=== PATIENT | male | born 1940 | race Caucasian/White ===

== ENCOUNTER 2016-07-30 06:39 | Inpatient (IN) | payer MEDICARE ==
[2016-07-30 07:28] LABS: Hematocrit 50 % (42-52); Hemoglobin 16.4 g/dl (14.0-18.0)
[2016-07-30 07:48] LABS: BUN/Creatinine Ratio 21.4 (8-20); Calcium 9.6 mg/dL (8.6-10.3); EGFR African American 68.4 (>60); EGFR Non-African American 53.2 (>60); Magnesium 2.2 mg/dL (1.9-2.7); Potassium 3.4 mmol/L (3.5-5.0)
[2016-07-30] MEDS ORDERED: Potassium Chloride LIQUID* 20 MEQ PACKET PO ONE (08:00)
[2016-07-30] MEDS ORDERED: Amiodarone 150 MG IVPREMIX* 150 MG/100 ML BAG IV ONE (08:01)
[2016-07-30 08:23] LABS: TSH (Thyroid Stimulating Horm) 1.64 mcIU/mL (0.34-5.60)
[2016-07-30 08:32] LABS: Free T4 1.31 ng/dL (0.61-1.12)
[2016-07-30] MEDS ORDERED: Lidocaine 2% VISCOUS* 15 ML UDC ONE (09:09)
[2016-07-30] MEDS ORDERED: Flumazenil* 0.1 MG/ML 5 ML MDV ONE (09:09)
[2016-07-30] MEDS ORDERED: fentaNYL* 50 MCG/ML 2 ML VIAL (100 MCG VIAL) ONE (09:09)
[2016-07-30] MEDS ORDERED: Midazolam* 1 MG/ML 5 ML VIAL (5 MG) ONE (09:09)
[2016-07-30] MEDS ORDERED: Naloxone* 0.4 MG/ML 1 ML VIAL ONE (09:09)
[2016-07-30] MEDS ORDERED: Amiodarone 360 MG IVPREMIX* 360 MG/200 ML BAG IV ONE (10:28)
[2016-07-30] MEDS ORDERED: Amiodarone DRIP* 1.8 MG/ML 200 ML IV ONE (10:30)
[2016-07-30] MEDS ORDERED: Dextrose 50% Syringe 50 ML* 25 GM/50 ML SYRINGE IV PUSH PRN (11:24)
[2016-07-30] MEDS ORDERED: Acetaminophen TAB* 325 MG PO PRN (11:24)
[2016-07-30] MEDS ORDERED: Spironolactone TAB* 25 MG PO ONE (11:30)
[2016-07-30] MEDS ORDERED: Furosemide IV* 10 MG/ML 10 ML VIAL (100 MG) IV ONE ×2 (11:30→15:55)
[2016-07-30] MEDS ORDERED: Ondansetron INJ* 2 MG/ML VIAL IV SCH (12:00)
--- NOTE | 2016-07-30 12:51 | RAD ---
INDICATION: Atrial fibrillation COMPARISON: None TECHNIQUE: An AP portable view obtained at 0148 hours is submitted. FINDINGS: Bones/Soft Tissues: There are no acute bony findings. There is sternotomy Cardiomediastinal: The cardiac silhouette is enlarged. Lungs: There is mild interstitial edema with a right-sided infiltrate with right basilar infiltrate or atelectasis. Pleura: Moderate right-sided effusion. Other: None IMPRESSION: MILD INTERSTITIAL CONGESTION WITH ENLARGED CARDIAC SILHOUETTE AND RIGHT AIRSPACE DISEASE WITH EFFUSION. SUGGEST FOLLOW-UP.
--- NOTE | 2016-07-30 13:00 | CONSULT ---
Subjective Date of Service: 07/30/16 Interval History: Date of admission and consult 07/30/2016 Primary Care Physician: Og Queen D.O. Poolroom/Poolhall Manager Dr. Cheikh May CC: Dyspnea, Reason for consult: Atrial fibrillation, CHF HPI Mr. Damon Branham was scheduled for an elective MATT/CV today for rapid atrial fibrillation and CHF. He came to [facility] very dyspneic again in rate uncontrolled atrial fibrillation but we were able to perform a MATT showing severely reduced LVEF 20-25%, mod-severe secondary MR, and no LA/MARISSA thrombus. Due to severe tachypnea and concern over further sedation causing respiratory suppression as patient was too awake to cardiovert, it was decided to admit patient for IV diuresis, heart failure optimization and amiodarone load prior to cardioversion attempt. Since office visit 07/24/2016, patient has continued to worsen with worsening dyspnea, abdominal distension and edema. He is severely orthopneic. There was been no chest pain or syncope. PMH: Medical Problems: Hypertension Diabetes Type II Dyslipidemia Atrial Fibrillation Obesity Pneumonia Gastroesophageal Reflux Disease (GERD) Aortic valve replacement Surgical Hx: Aortic Valve Replacement - (07/07/2007) Dr. Kory Carbajal at [facility]. Aortic valve replacement with a #25 Maxi Snow magna tissue valve. Had post- operative atrial fibrillation resolved with amiodarone FH: VT - 2 brothers Heart Disease - brothers. Father: Cerebrovascular Accident (CVA). Mother: Colon Cancer. 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, non-smoker, no excessive alcohol Allergies: Pencillin Medications Active Medications: Acetaminophen (Tylenol Tab*) 650 mg PO Q4H PRN PRN Reason: FEVER/PAIN Amiodarone HCl (Cordarone Tab*) 400 mg PO BID BRIANNA Dextrose (D50w Syringe 50 Ml*) 12.5 gm IV PUSH .FOR FS < 60 - SS PRN PRN Reason: FS < 60 Furosemide (Lasix Iv*) 40 mg IV SLOW PU 0800,1700 BRIANNA Amiodarone HCl (Nexterone 360 Mg/200 Ml Ivpremix*) 360 mg in 200 mls @ 33.333 mls/hr IV ONCE ONE; 1 MG/MIN PRN Reason: Protocol Stop: 07/30/16 16:29 Amiodarone HCl (Nexterone 360 Mg/200 Ml Ivpremix*) 360 mg in 200 mls @ 16.666 mls/hr IV .PER PROTOCOL BRIANNA; 0.5 MG/MIN PRN Reason: Protocol Stop: 07/31/16 10:30 Insulin Human Lispro (Humalog*) 0 units SUBCUT AC [facility] PRN Reason: Protocol Metoprolol Succinate (Toprol Xl Tab*) 50 mg PO BID [facility] Ondansetron HCl (Zofran Inj*) 4 mg IV Q4H [facility] Rivaroxaban (Xarelto (*)) 20 mg PO DAILY [facility] Spironolactone (Aldactone Tab*) 25 mg PO DAILY [facility] Home Medications: Cyanocobalamin TAB* [Vitamin B12 TAB*] 500 mcg PO DAILY 07/29/16 [History Confirmed 07/30/16] Diltiazem CD CAP* [Cardizem CD CAP*] 240 mg PO DAILY 07/29/16 [History Confirmed 07/30/16] Furosemide TAB* [Lasix TAB*] 40 mg PO DAILY 07/29/16 [History Confirmed 07/30/16 ] Lactobacillus [Probiotic] 1 cap PO DAILY 07/29/16 [History Confirmed 07/30/16] Metformin HCl [Metformin HCl ER] 500 mg PO DAILY 07/29/16 [History Confirmed 02/05] Metoprolol Succinate XL TAB* [Toprol XL TAB*] 100 mg PO DAILY 07/29/16 [History Confirmed 07/30/16] Rivaroxaban TAB(*) [Xarelto 20 mg] 20 mg PO DAILY 07/29/16 [History Confirmed ] Review of Systems - Measurements Intake and Output: Intake and Output Last 24 Hours 07/28/16 07/29/16 07/30/16 07/31/16 06:59 06:59 06:59 06:59 Weight 273 lb 5.971 oz - Review of Systems Constitutional Symptoms: Positive: Weight Gain, Weakness, Fatigue Dermatology: Negative: Skin Lesions, Skin Lumps HEENT: Negative: Change in Hearing, Vertigo Eyes: Negative: Change in Vision, Double Vision, Contacts or Glasses Thyroid: Positive: Palpitations, Weight Gain Negative: Cold Intolerance, Heat Intolerance, Tremor, Frequent Defecation, Constipation, Weight Loss Pulmonary: Positive: Cough, Respiratory Distress, Shortness of Breath, Exercise Intolerance Cardiology: Positive: Shortness of Breath, Swelling of Ankles, Edema, Paroxysmal Nocturnal Dyspnea, Orthopnea Negative: Chest Pain, Palpitations, Peripheral Vascular Dis, Faintness, Syncope, Claudication Gastroenterology: Negative: Nausea, Vomiting, Anorexia, Heartburn, Constipation, Melena Genital - Urinary: Negative: Dysuria, Hematuria Musculoskeletal: Negative: Joint Pain, Joint Stiffness, Arthritis Endocrinology: Positive: Obesity, Diabetes Negative: Hypoglycemia, Calluses, Gynecomastia, Pituitary Disease Hematologic/Lymphatic: Positive: Use of Anticoagulant Negative: Anemia, Easy Brusing Neurology: Negative: Headaches, Migraines, Change in Vision, Diplopia, Dizziness, Change in Balancing, Change in Coordination, Change in Memory, Hx of Stroke\TIA , Hx Seizures Psychiatry: Negative: Depressed Mood, Adhedonia, Weight Change, Guilt Feelings, Tearfulness, Unusual Fatigue Allergic/Immunologic: Negative: Hx HIV, Immunocompromise Review of Systems Statement: All other review of systems negative, unless stated above. Objective Vital Signs: Temp Pulse Resp BP Pulse Ox 97.0 F 31 23 113/75 93 07/30/16 11:35 07/30/16 12:30 07/30/16 12:30 07/30/16 12:30 07/30/16 12:30 Appearance: distressed, not toxic appearing Ears/Nose/Mouth/Throat: Clear Oropharnyx, Mucous Membranes Moist Neck: Trachea Midline, - - uncertain jvp Respiratory: - - tachypnea with increased work of breathing, b/l crackles Cardiovascular: - - irregularly irregular, distant, no significant murmur Abdominal: NL Sounds; No Tenderness; No Distention Extremities: No Clubbing, Cyanosis, - - 2+ pitting edema lower extremities Skin: No Nodules or Sclerosis Neurological: Alert and Oriented x 3 Laboratory Results: 07/30/16 07:15 07/30/16 07:15 INR (Anticoag Therapy) 2.16 (0.89-1.11) H 07/30/16 07:15 APTT 39.5 seconds (26.0-36.3) H 07/30/16 07:15 B-Natriuretic Peptide 390 pg/mL (-100) H 07/30/16 07:15 TSH 1.64 mcIU/mL (0.34-5.60) 07/30/16 07:15 07/05/2016 wbc 10.5, hgb 14.3, plts 189 Na 137, k 4.4, cr 1.4, bun 29 bicarb 26 07/03/2016: tchol 125, tri 85, ldl 77, hdl 31 07/02/2016 hgba1c 6.7 BNP 541 inr 1.16/ptt 27.7 Diagnostic Imaging: Cardiac Testing: Echocardiogram - (07/03/2016) Patient in rapid atrial fibrillation at time of study, LVEF at least mild to moderately reduced (non-diagnostic study), LA moderately dilated, normal gradient/velocity across aortic bioprosthesis T E E - (07/07/2007) Post op MATT shows nromal functioning bioprosthetic aortic valve no evidence of stenosis (max velocity 1.5-1.8 m/s), trivial intravalvular AR, mild-mod MAC with mild-mod MR (decreased post-op), moderate LVH, post- operative LVEF appeared mildly depressed EKG - (07/24/2016) Afib rate 115 bpm, LBBB Cardiac catheterization - (07/01/2007) Dr. Gay [facility] via right groin: Separate ostia for LAD and Lcx, LVEF 35-40%, critical , mild non-obstructive CAD, severe pHTN 81/31 in setting of PCWP 29 mmHg MATT 07/30/2016: LVEF 20-25%, mod-severe functional MR, no LA/MARISSA thrombus, normal functioning aortic bioprosthesis EKG 07/30/2016: LBBB, Afib rate 91 bpm (after IV amiodarone started) CXR 07/30/2016: R> pleural effusion, + pulmonary edema Assessment/Plan In summary Damon Branham is a 76-year-old man with a history of bioprosthetic aortic valve replacement, HTN, DM on oral medications, left bundle branch block who presents with severe systolic HF in the setting of rapid atrial fibrillation suspected for months. MATT today without LA/MARISSA thrombus and normal functioning aortic valve. Reliably taking xarelto. - Discontinue diltiazem - Change toprol from 100 mg PO daily to 50 mg PO BID for now during hospitalization - Give IV amiodarone load then start 400 mg PO BID for now, will need taper at discharge - Continue IV diuresis - Start aldactone 25 mg PO daily today - Start lisinopril 2.5 mg PO daily today - Continue xarelto 20 mg PO daily - Trend I/O, weights BMP/Mg, - Given history of DM and prior non-obstructive CAD will start atorvastatin - Leave NPO after 2400, patient will be re-evaluated for ability to perform external electrical cardioversion tomorrow - Once heart failure is optimized, patient can be discharged, would need BMP and f/u appointment next week. After a period of time in sinus rhythm (or at least strict AFib rate control), will repeat TTE to evaluate for LV recovery ( suspect tachycardia is a significant contributor to patient LV dysfunction and hopefully will improve which was discussed with patient and family) Thank you for allowing me to participate in the cardiovascular care of this patient. Please do not hesitate to contact me with questions or concerns.
[2016-07-30] MEDS ORDERED: Ondansetron INJ* 2 MG/ML VIAL IV PRN (14:01)
--- NOTE | 2016-07-30 14:34 | HP ---
HISTORY AND PHYSICAL: * ADDENDUM: Mr. Branham is a 76-year-old male with history of recently diagnosed atrial fibrillation, who was scheduled for MATT and cardioversion today with Dr. May as outpatient. The patient was noted to be in CHF. His MATT noted to have an EF of 25% and no intracardiac thrombus. The patient is going to be admitted to the intensive care unit with a diagnosis of CHF and continuation of treatment of atrial fibrillation with amiodarone drip. For further details of the patient's presentation and plan, please see history and physical dictated by Zeferino Hernandez on 07/30/16, with which I agree. [id number]/[facility] #: [id number] MTDD
[2016-07-30] MEDS: Insulin LISPRO* 1 UNITS UNIT SUBCUT SCH ×2 (14:38→17:40)
[2016-07-30] MEDS: Lisinopril TAB* 5 MG PO SCH (14:39)
--- NOTE | 2016-07-30 15:23 | HP ---
ATTENDING PROVIDER'S ADDENDUM NOW INCLUDED ON THIS REPORT HISTORY AND PHYSICAL: DATE OF ADMISSION: 07/30/16 PRIMARY CARE PROVIDER: Dr. Queen ATTENDING PHYSICIAN WHILE IN THE HOSPITAL: Dr. Ute Hunt * (report dictated by Doe Hernandez NP) CONSULTING [employer] INSURANCE CLAIMS ADJUSTER: Dr. May CHIEF COMPLAINT: 1. Shortness of breath. 2. Weight gain. 3. Leg swelling. HISTORY OF PRESENT ILLNESS: Mr. Branham is a 76-year-old male patient who has been actually about almost 4 weeks ago was over at [facility] found to be in atrial fibrillation with RVR, he was in CHF. He was diuresed, rate controlled and was discharged ultimately and was sent to Dr. May's office for followup. The patient has a history of atrial fibrillation, he has a history of aortic valve replacement, CHF, coronary artery disease nonobstructive , hypertension, hyperlipidemia, GERD, rheumatic fever, and history of left bundle branch block. He states to me that he has been dealing with his shortness of breath for 3 weeks, although the family thinks like it has been much longer than this. They say that over the weekend and last Wednesday, he has had progressive worsening shortness of breath. He can no longer lie flat. He thinks he has gained about 20 pounds since the [facility] admission. He said he has had more swelling in his lower extremities. He was in touch with Dr. May who felt that he wanted to get him in for a repeat echo and he underwent a MATT today and they were possibly going to try cardioversion; however, the patient's EF was noted to be on the low side at 25 to 30% down from his previously documented ejection fractions. In addition to this, there was concern that he appeared to be in CHF, so cardioversion was aborted and asked to admit the patient to help diurese him. The patient denies having a cough. He says he is really short of breath when he lies flat. He says he has gained weight. He denies using any salt. He says he does not feel palpitation or has any chest discomfort presumably though he may have been in this atrial fibrillation for months and he certainly may now have cardiomyopathy from that. He states that there has been no fevers, no vomiting, no abdominal discomfort, but again because of the concern for CHF he would require IV diuresis. The hospitalist service was asked to evaluate for admission. PAST MEDICAL HISTORY: Significant for: 1. Left bundle branch block. 2. Afib. 3. CHF. 4. Cardiomyopathy. 5. Rheumatic fever. 6. Diabetes. 7. CAD. 8. Hypertension. 9. Hyperlipidemia. 10. GERD. PAST SURGICAL HISTORY: He has had aortic valve replacement which is porcine. HOME MEDICATIONS: According to the list that he provided include: 1. Metoprolol XL 100 mg daily. 2. Cardizem CD 240 mg daily. 3. B12 500 mcg daily. 4. Xarelto 20 mg daily. 5. Lasix 40 mg daily. 6. Metformin 500 mg p.o. daily. 7. Lactobacillus one capsule p.o. daily. ALLERGIES TO MEDICATIONS: Include no known drug allergies. FAMILY HISTORY: His father had CVA. Mother had history of colon cancer. SOCIAL HISTORY: He does not smoke. He does not drink. He lives with his . Surrogate decision maker is his and children. REVIEW OF SYSTEMS: There is no documented fever. He does admit to significant weight change. Denies having any double vision. No ear discharge. Denies having any rhinorrhea. No sore throat, no thyroid enlargement. Denied having any chest pain. There is orthopnea. There is dyspnea on exertion. There is nocturnal dyspnea. There was no abdominal pain. No nausea, no vomiting, no dysuria, no frequency, no seizure, no loss of consciousness, no pruritus and no skin ulcerations. Review of 14 systems completed, all others negative. PHYSICAL EXAMINATION GENERAL: At this time, Mr. Branham is a 76-year-old male patient, he is sitting in the ICU stretcher. He does not appear to be in any acute distress. VITAL SIGNS: Reveals blood pressure 112/74, pulse 92, respirations 29, O2 sat 100%, temperature 97. HEENT: Head is atraumatic and normocephalic. Eyes: EOMs are intact. Sclerae anicteric and not pale. Throat: Oral mucosa appears to be moist. No oropharyngeal erythema. NECK: Supple. He does have JVD. LUNGS: He did have some crackles in the lower bases. Equal diaphragmatic expansion. HEART: Heart sounds S1 and S2, irregularly irregular rate. No murmurs, rubs, or gallops. ABDOMEN: Soft, flat, nontender. Bowel sounds present. EXTREMITIES: He had +2 pitting edema bilaterally from the ankle up to the mid tibia area. He had 5/5 strength. NEUROLOGIC: He is awake, alert, oriented x3. Tongue is midline. Car Repairman were equal. No gross focal deficits. SKIN: Intact. LABORATORY DATA: The labs that I have today so far revealed hemoglobin of 16.4 , hematocrit of 50. INR 2.16. PTT is 39.5. His sodium is 135, potassium 3.4, chloride 100, bicarbonate 29, BUN 28, creatinine 1.21, glucose 156, calcium 9.6 , mag 2.2. BNP 390. TSH 164. Free T4 of 1.31. I do not have an EKG in front of me, but I do have report of an EKG that showed Afib, left bundle branch block, I am getting one now. Chest x-ray is pending. Verbal report of the MATT with EF of 25 to 30%. I did review Dr. May's note from outpatient setting. Old medical records reviewed. ASSESSMENT/PLAN: Mr. Branham is a 76-year-old male patient coming into the [facility] today for an outpatient MATT guided cardioversion, which was aborted due to the fact that the patient has significant amount of lower ejection fraction and now it was concerned for congestive heart failure. We are asked to evaluate for admission. He will be admitted under inpatient status for: 1. Congestive heart failure and new cardiomyopathy, again I suspect this cardiomyopathy is probably from tachycardia. The plan at this point is to control his rhythm. Dr. May has already evaluated the patient. He started him on an amiodarone drip, I will defer that to him, we will diurese him again, Dr. May has already ordered a Lasix IV now. I will replace his potassium as it was low with 40 mEq p.o. We will diurese him, check his weights daily, and we will continue to follow. Going forward, I did order Lasix IV b.i.d. and we will repeat his EKG, follow his electrolytes, and continue to follow. 2. Atrial fibrillation, again he is on amiodarone, his rate when I saw him his rate around 90. We will continue his metoprolol and the amiodarone. We are stopping the diltiazem at this point and we are not going to continue it. We will go ahead and put him on again the Xarelto and continue with rate control. 3. Diabetes, on lispro sliding scale. 4. History of coronary artery disease. He is on a beta-tami, we could consider adding an aspirin, but at this point he is on Xarelto. I will defer to his primary care provider. 5. Hypertension. Continues meds as prescribed. 6. Hyperlipidemia. Follow with his primary. 7. Gastroesophageal reflux disease. Continue with his current medical regimen. 8. Deep vein thrombosis prophylaxis. He is on Xarelto. 9. Code status. Full code. 10. Fluids, electrolytes, and nutrition. He can have a heart healthy diet. TIME SPENT: Time spent on the admission was 60 minutes, greater than half the time was spent [id number] with the patient obtaining my history and physical; the other half time was spent going over the plan of care with the patient and implementing plan of care. I did discuss the plan of care with my attending Dr. Hunt; she is in agreement. DOE HERNANDEZ NP ADDENDUM: Mr. Branham is a 76-year-old male with history of recently diagnosed atrial fibrillation, who was scheduled for MATT and cardioversion today with Dr. May as outpatient. The patient was noted to be in CHF. His MATT noted to have an EF of 25% and no intracardiac thrombus. The patient is going to be admitted to the intensive care unit with a diagnosis of CHF and continuation of treatment of atrial fibrillation with amiodarone drip. For further details of the patient 's presentation and plan, please see history and physical dictated by Zeferino Hernandez on 07/30/16, with which I agree. UTE HUNT MD CC: Dr. Queen, Dr. May * [id number]/[facility] #: [id number] #: [id number] [facility] SYSTEMBhanu
[2016-07-30] MEDS: Amiodarone 360 MG IVPREMIX* 360 MG/200 ML BAG IV SCH (16:01)
--- NOTE | 2016-07-30 17:06 | TEE ---
Patient: SANDY HARTMAN [facility] Rec#: [id number] : 1940 Date: 07/30/2016 Age: 76y Height: 177.8 cm / 70.0 in Weight: 121.6 kg / 268.0 lbs Sex: M BSA: 2.36 Admit Date#: 07/30/2016 Type: Outpatient Referring: Cheikh May DO Performing: Cheikh May DO Reading: Cheikh May DO Signal Fitter: Carolyn Hartman RN RDCS Nurse: Shade Oh, ADILSON Nurse: Maria Esther Guajardo,ADILSON CC: Og Queen DO Transesophageal Echocardiogram Indication: Atrial fibrillation, CHF BP: 109/82 HR: 108 Rhythm: A-Fib Findings History: AVR with #25 Maxi Snow tissue valve in 2007, CAD, LBBB, HTN, DM, HLD, obesity, GERD Technical Comments: The study quality is good. Left Ventricle: The left ventricular chamber size is normal. The estimated ejection fraction is 20-25%. Post surgical hypokinesis of the interventricular septum is observed consistent with valve replacement. There is a left ventricular septal wall motion abnormality observed, possibly due to the presence of a left bundle branch block. Left Atrium: The left atrium is moderately dilated. Spontaneous echo contrast is present in the left atrium cavity and appendage. No thrombus is visualized within the left atrium. There is no thrombus visualized in the left atrial appendage. Right Ventricle: The right ventricle is mildly dilated. The right ventricular global systolic function is moderately reduced. Right Atrium: The right atrium is moderate to severely dilated. A patent foramen ovale is not demonstrated by color Doppler. Aortic Valve: There is a trace of aortic regurgitation. A porcine bio-prosthetic aortic valve is present. The bio-prosthetic aortic valve appears to be functioning normally. Mitral Valve: Mild mitral annular calcification present. The mitral valve leaflets are mildly thickened. There is moderate mitral regurgitation. Tricuspid Valve: The tricuspid valve leaflets are mildly thickened. There is mild tricuspid regurgitation. Unable to estimate the right ventricular systolic pressure. Pulmonic Valve: The pulmonic valve structure is not well visualized. Pericardium: There is no significant pericardial effusion. A pericardial fat pad is visualized. Aorta: There is no dilatation of the ascending aorta. There is no dilation of the aortic root. There is moderate atherosclerotic plaque seen in the aorta. Pulmonary Artery: The main pulmonary artery is not well visualized. Venous: The bicaval view was obtained and appears normal. The pulmonary veins appear normal. The LUPV was well visualized and interrogated with Doppler. MTAT Procedures: All standard views were attempted within the limitations of patient tolerance and safety. History and physical as well as labs were reviewed. The patient was in a fasting state. Risks and benefits of the procedure, including alternatives, were discussed and written informed consent was obtained. The patient and/or their health care customer development representative expressed understanding of the procedure, risks and benefits. Baseline and continuous monitoring of blood pressure, heart rate, pulse oximetry and heart rhythm was performed throughout the procedure. The appropriate time-out procedure was performed as per [facility] protocol. The patient was placed in the left lateral decubitus position. The patient's posterior pharynx was anesthetized with 20ml of 2% viscous lidocaine. The patient received IV Midazolam with a total dose of 3 mg. The patient received IV Fentanyl with a total dose of 75 mcg. An oral bite block was inserted for protection of oral dentition. The multiplane transesophageal echocardiogram probe was inserted through the posterior oropharynx and advanced into the esophagus without difficulty. Multiple 2D images were obtained of the heart and its related structures. Color flow Doppler was used for evaluation. Spectral Doppler was also used. The atrial septum was interrogated with color flow Doppler. At the conclusion of the procedure the probe was removed with continuous suction without complications. The patient tolerated the procedure with no apparent complications. Conclusions The left ventricular chamber size is normal. The estimated LV ejection fraction is 20-25%. The left atrium is at least moderately dilated. There is at least moderate secondary/functional mitral regurgitation. Unable to estimate the right ventricular systolic pressure. The right ventricle is mildly dilated. The right ventricular global systolic function is moderately reduced. The right atrium is moderate to severely dilated. There is moderate atherosclerotic plaque seen in the aortic arch and descending aorta. No recent MATT's available for comparison at time of interpretation. Measurements Name Value Normal Range Aortic Annulus 2.4 cm (1.4 - 2.6) Ao root diameter (2D) 2.8 cm (2.1 - 3.5) Ascending Ao 2.8 cm (2.1 - 3.4) Name Value Normal Range MV E-wave Vmax 0.78 m/sec - MV deceleration time 147 msec - Name Value Normal Range AV Vmax 1 m/sec - Name Value Normal Range MR Vmax 3.7 m/sec - MR VTI 102 cm - MR volume (PISA) 15.3 ml - MR ERO 0.15 cm2 - MR PISA radius 0.5 cm -
[2016-07-30] MEDS: Atorvastatin* 20 MG TAB PO SCH (17:40)
[2016-07-31] MEDS: Amiodarone 360 MG IVPREMIX* 360 MG/200 ML BAG IV SCH (05:17)
[2016-07-31 07:30] LABS: Hematocrit 48 % (42-52); Hemoglobin 15.8 g/dl (14.0-18.0); Mean Corpuscular HGB Conc 33 g/dl (31-36); Mean Corpuscular Hemoglobin 31 pg (27-31); Mean Corpuscular Volume 93 fL (80-94); Mean Platelet Volume 9 um3 (7.4-10.4); Red Blood Count 5.11 10^6/ul (4.0-5.4); Red Cell Distribution Width 15 % (10.5-15); White Blood Count 8.6 10^3/ul (3.5-10.8)
[2016-07-31] MEDS: Furosemide IV* 10 MG/ML VIAL (40 MG) IV SLOW PU SCH ×2 (07:38→17:16)
[2016-07-31] MEDS: Spironolactone TAB* 25 MG PO SCH (07:38)
[2016-07-31] MEDS: Lisinopril TAB* 5 MG PO SCH (07:38)
[2016-07-31] MEDS: Rivaroxaban TAB(*) 20 MG TAB PO SCH (07:38)
[2016-07-31] MEDS: Metoprolol Succinate XL TAB* 50 MG PO SCH ×2 (07:38→21:03)
[2016-07-31] MEDS: Insulin LISPRO* 1 UNITS UNIT SUBCUT SCH ×3 (07:38→17:15)
[2016-07-31 07:41] LABS: Albumin 3.7 g/dL (3.2-5.2); Calcium 9.4 mg/dL (8.6-10.3); Direct Bilirubin 0.2 mg/dL (0.03-0.18); EGFR African American 66.1 (>60); EGFR Non-African American 51.4 (>60); Indirect Bilirubin 0.6 mg/dL (0.3-1.0); Magnesium 2.1 mg/dL (1.9-2.7); Potassium 3.7 mmol/L (3.5-5.0); Total Bilirubin 0.8 mg/dL (0.2-1.0); Total Protein 6.7 g/dL (6.4-8.9)
--- NOTE | 2016-07-31 08:36 | PN ---
Subjective Date of Service: 07/31/16 Interval History: Patient seen and examined at bedside. Pt states that he is feeling well this morning. Denies fever, chills, chest discomfort, palpitations, N/V/D. Pt states that he continues to have shortness of breath but this has improved since admission. 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 Family History: Unchanged from Admission Social History: Unchanged from Admission Past Medical History: Unchanged from Admission Objective Active Medications: Acetaminophen (Tylenol Tab*) 650 mg PO Q4H PRN Reason: FEVER/PAIN Amiodarone HCl (Cordarone Tab*) 400 mg PO BID [facility] Atorvastatin Calcium (Lipitor*) 20 mg PO 1700 [facility] Dextrose (D50w Syringe 50 Ml*) 12.5 gm IV PUSH .FOR FS < 60 - SS PRN Reason: FS < 60 Furosemide (Lasix Iv*) 40 mg IV SLOW PU 0800,1700 [facility] Amiodarone HCl (Nexterone 360 Mg/200 Ml Ivpremix*) 360 mg in 200 mls @ 16.666 mls/hr IV .PER PROTOCOL BRIANNA; 0.5 MG/MIN Stop: 07/31/16 10:30 Insulin Human Lispro (Humalog*) 0 units SUBCUT AC [facility] Reason: Protocol Lisinopril (Prinivil Tab*) 2.5 mg PO DAILY [facility] Metoprolol Succinate (Toprol Xl Tab*) 50 mg PO BID [facility] Ondansetron HCl (Zofran Inj*) 4 mg IV Q6H PRN Reason: NAUSEA Rivaroxaban (Xarelto (*)) 20 mg PO DAILY [facility] Spironolactone (Aldactone Tab*) 25 mg PO DAILY [facility] Vital Signs 07/30/16 07/30/16 07/30/16 11:24 11:30 11:32 Temperature 97.0 F Pulse Rate 33 Respiratory 19 Rate Blood Pressure 112/74 (mmHg) O2 Sat by Pulse 98 Oximetry 07/30/16 07/30/16 07/30/16 11:35 11:45 11:49 Temperature 97.0 F Pulse Rate 92 37 Respiratory 29 26 32 Rate Blood Pressure 112/74 113/97 (mmHg) O2 Sat by Pulse 100 94 Oximetry 07/30/16 07/30/16 07/30/16 12:00 12:15 12:30 Temperature Pulse Rate 90 56 31 Respiratory 31 26 23 Rate Blood Pressure 105/83 115/72 113/75 (mmHg) O2 Sat by Pulse 94 94 93 Oximetry 07/30/16 07/30/16 07/30/16 12:45 13:00 13:15 Temperature Pulse Rate 32 75 79 Respiratory 32 27 27 Rate Blood Pressure 117/77 101/51 111/81 (mmHg) O2 Sat by Pulse 96 93 95 Oximetry 07/30/16 07/30/16 07/30/16 13:30 13:45 14:00 Temperature Pulse Rate 179 89 52 Respiratory 32 26 30 Rate Blood Pressure 84/64 111/83 125/66 (mmHg) O2 Sat by Pulse 95 94 95 Oximetry 07/30/16 07/30/16 07/30/16 14:16 14:30 14:37 Temperature Pulse Rate 116 94 Respiratory 33 26 Rate Blood Pressure 107/76 116/71 (mmHg) O2 Sat by Pulse 95 94 95 Oximetry 07/30/16 07/30/16 07/30/16 14:45 15:00 15:15 Temperature Pulse Rate 91 93 44 Respiratory 19 20 26 Rate Blood Pressure 105/85 103/74 104/72 (mmHg) O2 Sat by Pulse 94 94 93 Oximetry 07/30/16 07/30/16 07/30/16 15:24 15:30 15:45 Temperature Pulse Rate 108 116 68 Respiratory 27 30 Rate Blood Pressure 115/95 99/83 (mmHg) O2 Sat by Pulse 93 92 Oximetry 07/30/16 07/30/16 07/30/16 16:00 16:01 16:16 Temperature Pulse Rate 102 Respiratory 24 28 27 Rate Blood Pressure 113/67 112/67 (mmHg) O2 Sat by Pulse 93 Oximetry 07/30/16 07/30/16 07/30/16 16:30 16:46 17:00 Temperature Pulse Rate 115 158 Respiratory 33 35 Rate Blood Pressure 101/74 110/72 107/83 (mmHg) O2 Sat by Pulse 94 95 Oximetry 07/30/16 07/30/16 07/30/16 17:15 17:30 17:34 Temperature Pulse Rate 58 Respiratory 32 37 35 Rate Blood Pressure 113/82 58/43 98/80 (mmHg) O2 Sat by Pulse 93 Oximetry 07/30/16 07/30/16 07/30/16 17:45 18:00 18:45 Temperature Pulse Rate 114 59 Respiratory 27 25 Rate Blood Pressure 96/71 104/79 96/51 (mmHg) O2 Sat by Pulse 96 93 Oximetry 07/30/16 07/30/16 07/30/16 19:00 19:15 19:30 Temperature Pulse Rate 81 89 72 Respiratory 31 30 26 Rate Blood Pressure 96/55 90/50 96/58 (mmHg) O2 Sat by Pulse 93 93 93 Oximetry 07/30/16 07/30/16 07/30/16 19:45 20:00 20:15 Temperature 97.9 F Pulse Rate 39 104 47 Respiratory 24 24 29 Rate Blood Pressure 89/66 86/54 106/55 (mmHg) O2 Sat by Pulse 93 92 94 Oximetry 07/30/16 07/30/16 07/30/16 20:30 20:45 21:00 Temperature Pulse Rate 130 45 50 Respiratory 26 31 31 Rate Blood Pressure 91/46 98/76 86/54 (mmHg) O2 Sat by Pulse 94 94 94 Oximetry 07/30/16 07/30/16 07/30/16 21:15 21:30 21:45 Temperature Pulse Rate 39 52 72 Respiratory 21 27 23 Rate Blood Pressure 88/44 92/60 90/76 (mmHg) O2 Sat by Pulse 93 94 92 Oximetry 07/30/16 07/30/16 07/30/16 22:00 22:15 22:31 Temperature Pulse Rate 106 66 96 Respiratory 31 27 23 Rate Blood Pressure 75/61 98/79 106/64 (mmHg) O2 Sat by Pulse 91 94 93 Oximetry 07/30/16 07/30/16 07/30/16 22:45 23:00 23:15 Temperature Pulse Rate 94 126 68 Respiratory 28 34 23 Rate Blood Pressure 112/75 122/84 135/112 (mmHg) O2 Sat by Pulse 92 94 92 Oximetry 07/30/16 07/30/16 07/30/16 23:30 23:46 23:50 Temperature Pulse Rate 93 107 86 Respiratory 27 24 27 Rate Blood Pressure 104/60 123/102 107/73 (mmHg) O2 Sat by Pulse 93 92 92 Oximetry 07/31/16 07/31/16 07/31/16 00:00 00:01 00:15 Temperature 97.0 F Pulse Rate 38 64 122 Respiratory 20 20 23 Rate Blood Pressure 111/77 101/66 (mmHg) O2 Sat by Pulse 91 92 93 Oximetry 07/31/16 07/31/16 07/31/16 00:30 00:46 01:00 Temperature Pulse Rate 115 93 74 Respiratory 25 24 26 Rate Blood Pressure 107/80 109/69 104/89 (mmHg) O2 Sat by Pulse 93 93 93 Oximetry 07/31/16 07/31/16 07/31/16 01:15 01:30 01:45 Temperature Pulse Rate 88 84 108 Respiratory 20 29 25 Rate Blood Pressure 100/84 102/76 116/92 (mmHg) O2 Sat by Pulse 93 95 93 Oximetry 07/31/16 07/31/16 07/31/16 02:00 02:17 02:31 Temperature Pulse Rate 103 130 35 Respiratory 26 31 32 Rate Blood Pressure 115/99 120/90 107/71 (mmHg) O2 Sat by Pulse 94 94 95 Oximetry 07/31/16 07/31/16 07/31/16 02:45 03:00 03:18 Temperature Pulse Rate 100 63 94 Respiratory 22 23 26 Rate Blood Pressure 98/53 100/73 109/80 (mmHg) O2 Sat by Pulse 92 93 92 Oximetry 07/31/16 07/31/16 07/31/16 03:31 03:46 04:00 Temperature 96.8 F Pulse Rate 81 171 81 Respiratory 24 22 17 Rate Blood Pressure 114/83 124/78 102/88 (mmHg) O2 Sat by Pulse 93 92 93 Oximetry 07/31/16 07/31/16 07/31/16 04:15 04:30 04:45 Temperature Pulse Rate 117 60 62 Respiratory 26 25 24 Rate Blood Pressure 104/87 100/75 79/54 (mmHg) O2 Sat by Pulse 92 94 93 Oximetry 07/31/16 07/31/16 07/31/16 05:00 05:15 05:30 Temperature Pulse Rate 121 126 104 Respiratory 18 25 31 Rate Blood Pressure 105/80 95/57 112/80 (mmHg) O2 Sat by Pulse 95 92 93 Oximetry 07/31/16 07/31/16 07/31/16 05:45 06:00 06:17 Temperature Pulse Rate 29 112 121 Respiratory 30 25 26 Rate Blood Pressure 106/81 109/80 129/55 (mmHg) O2 Sat by Pulse 94 93 94 Oximetry 07/31/16 07/31/16 07/31/16 06:30 06:45 07:00 Temperature Pulse Rate 132 52 113 Respiratory 30 29 24 Rate Blood Pressure 115/65 115/75 106/94 (mmHg) O2 Sat by Pulse 95 93 91 Oximetry 07/31/16 07/31/16 07/31/16 07:10 07:15 07:30 Temperature Pulse Rate 48 122 Respiratory 28 26 28 Rate Blood Pressure 108/76 116/97 (mmHg) O2 Sat by Pulse 96 95 Oximetry 07/31/16 07/31/16 07/31/16 07:45 07:46 08:00 Temperature 96.4 F Pulse Rate 39 78 Respiratory 28 28 28 Rate Blood Pressure 100/86 (mmHg) O2 Sat by Pulse 93 95 Oximetry 07/31/16 08:01 Temperature Pulse Rate 100 Respiratory 27 Rate Blood Pressure 115/91 (mmHg) O2 Sat by Pulse 94 Oximetry Oxygen Devices in Use Now: None Appearance: NAD, sitting up in a chair Eyes: No Scleral Icterus, PERRLA Ears/Nose/Mouth/Throat: Mucous Membranes Moist Respiratory: Symmetrical Chest Expansion and Respiratory Effort, Clear to Auscultation Cardiovascular: NL Sounds; No Murmurs; No JVD, - - Heart rate irregular Extremities: - - 1-2+ bilateral LE edema Skin: No Rash or Ulcers Neurological: Alert and Oriented x 3, NL Muscle Strength and Tone Lines/Tubes/Other Access: Clean, Dry and Intact Peripheral IV - site benign Nutrition: Taking PO's Result Diagrams: 07/31/16 06:45 07/31/16 06:45 Microbiology and Other Data: Microbiology 07/30/16 12:45 Nasal Screen MRSA (PCR)(SANDY) - Final Nasal Mrsa Negative Assess/Plan/Problems-Billing Assessment: Mr. Branham is a 76 yo male with PMH significant for hx bioprosthetic aortic valve replacement, HTN, DM, and Left BBB who presented for an elective cardioversion and MATT and was found to have severe systolic heart failure in the setting of rapid atrial fib. - Patient Problems (1) Congestive heart failure (CHF) Code(s): I50.9 - HEART FAILURE, UNSPECIFIED SNOMED Code(s): 74886900 Comment: - Acute systolic heart failure - with new cardiomyopathy, suspect secondary to tachycardia - MATT, EF 20-25% - Continue IV Lasix BID, aldactone and lisinopril - Daily weights and strict I+O's (2) Atrial fibrillation Code(s): I48.91 - UNSPECIFIED ATRIAL FIBRILLATION SNOMED Code(s): 62342398 Comment: - Continues to be tachycardic, rate 90-130's - On amiodarone per Cardiology - Continue metoprolol and Xarelto - Follow electrolytes, goal K+ >4 and MG+ > 2 (3) Diabetes Code(s): E11.9 - TYPE 2 DIABETES MELLITUS WITHOUT COMPLICATIONS SNOMED Code(s) : 18680503 Comment: - Glucose checks AC - Hold metformin - Continue Lispro SS (4) History of coronary artery disease Code(s): Z86.79 - PERSONAL HISTORY OF OTHER DISEASES OF THE CIRCULATORY SYSTEM SNOMED Code(s): 261716465 Comment: - Continue metoprolol and atorvastatin (5) HTN (hypertension) Code(s): I10 - ESSENTIAL (PRIMARY) HYPERTENSION SNOMED Code(s): 42699185 Comment: - Hypotensive to Normotensive - Continue metoprolol and lisinopril (6) HLD (hyperlipidemia) Code(s): E78.5 - HYPERLIPIDEMIA, UNSPECIFIED SNOMED Code(s): 18879486 Comment: - Continue atorvastatin (7) GERD (gastroesophageal reflux disease) Code(s): K21.9 - GASTRO-ESOPHAGEAL REFLUX DISEASE WITHOUT ESOPHAGITIS SNOMED Code(s): 922360483 Comment: (8) DVT prophylaxis Code(s): IZM6752 - SNOMED Code(s): 093874119 Comment: - Continue Xarelto (9) Full code status Code(s): Z78.9 - OTHER SPECIFIED HEALTH STATUS SNOMED Code(s): 221035311 Status and Disposition: Inpatient. Discharge to home when medically stable.
[2016-07-31] MEDS ORDERED: Metoprolol Succinate XL TAB* 100 MG PO SCH (09:00)
[2016-07-31] MEDS ORDERED: Diltiazem CD CAP* 240 MG PO SCH (09:00)
[2016-07-31] MEDS ORDERED: Digoxin IV* 0.5 MG/2 ML AMP (0.25 MG/ML) IV SLOW PU ONE (09:46)
[2016-07-31] MEDS ORDERED: Digoxin IV* 0.5 MG/2 ML AMP (0.25 MG/ML) ONE (09:53)
[2016-07-31] MEDS ORDERED: Midazolam* 1 MG/ML 5 ML VIAL (5 MG) ONE (11:01)
[2016-07-31] MEDS ORDERED: Naloxone* 0.4 MG/ML 1 ML VIAL ONE (11:02)
[2016-07-31] MEDS ORDERED: Flumazenil* 0.1 MG/ML 5 ML MDV ONE (11:02)
[2016-07-31] MEDS ORDERED: fentaNYL* 50 MCG/ML 2 ML VIAL (100 MCG VIAL) ONE (11:02)
[2016-07-31] MEDS ORDERED: Atropine SYRINGE* 0.1 MG/ML 10 ML SYRINGE (1 MG) ONE (11:03)
--- NOTE | 2016-07-31 14:27 | PRO ---
CARDIOLOGY PROCEDURE NOTE: DATE OF PROCEDURE: 07/31/16 - ROOM #441 PATIENT OF: Dr. May. REASON FOR PROCEDURE: Atrial fibrillation. HISTORY: This is a very pleasant 76-year-old gentleman admitted with AFib with rapid ventricular response, congestive heart failure. He had previously undergone treatment for his heart failure and MATT with Dr. May. He had no evidence of thrombus. He was diuresed yesterday and his heart failure has improved today. Informed consent was obtained. Risks and benefits of attempted cardioversion and conscious sedation were reviewed including the potential for respiratory distress, arrest, intubation, and CVA. The patient and his at the bedside agree and informed consent was obtained. The patient was in the fasting state. 4 mg of Versed and 25 mcg of fentanyl were administered. The patient was converted to sinus rhythm with a single biphasic shock of 220 joules. He was given Mazicon 0.1 mg x3 afterwards to reverse the effects of the conscious sedation. The patient was awake and alert, and no complications noted after the procedure. I did discuss the plan with his as with the patient's permission and we brought her back to the room, also discussed with the patient. For the time being, I have recommended follow on, he is to continue on the amiodarone. He is to continue on his beta tami. They understand that we will continue to adjust his medications to control his heart failure. He has a cardiomyopathy of unclear etiology, possibly tachycardia induced. I explained that the potential for recovery and time of recovery are uncertain at this point. Hopefully, he will have improvement in his LV function now that he is in sinus rhythm. He also has a left bundle branch block. He will follow up with Dr. May at some point for further followup evaluation of his paroxysmal atrial arrhythmias and LV dysfunction. He is to restart a no-caffeine, no-alcohol diet, and a heart healthy diet. He is to continue anticoagulation. CC: Dr. May; Dr. Queen [id number]/[facility] #: [id number] [facility]
[2016-07-31] MEDS: Atorvastatin* 20 MG TAB PO SCH (17:16)
[2016-07-31] MEDS ORDERED: Amiodarone TAB* 400 MG PO SCH (21:00)
[2016-07-31] MEDS: Amiodarone TAB* 200 MG PO SCH (21:13)
[2016-08-01 07:19] LABS: BUN/Creatinine Ratio 24.2 (8-20); Calcium 9.5 mg/dL (8.6-10.3); EGFR African American 72.9 (>60); EGFR Non-African American 56.7 (>60); Magnesium 2.1 mg/dL (1.9-2.7); Potassium 3.8 mmol/L (3.5-5.0)
[2016-08-01 07:39] LABS: Digoxin 0.6 ng/ml (0.8-2.0)
[2016-08-01] MEDS: Amiodarone TAB* 200 MG PO SCH (08:48)
[2016-08-01] MEDS: Lisinopril TAB* 5 MG PO SCH (08:48)
[2016-08-01] MEDS: Metoprolol Succinate XL TAB* 50 MG PO SCH (08:49)
[2016-08-01] MEDS: Rivaroxaban TAB(*) 20 MG TAB PO SCH (08:49)
[2016-08-01] MEDS: Insulin LISPRO* 1 UNITS UNIT SUBCUT SCH ×2 (08:50→12:12)
[2016-08-01] MEDS: Spironolactone TAB* 25 MG PO SCH (08:50)
[2016-08-01] MEDS: Furosemide IV* 10 MG/ML VIAL (40 MG) IV SLOW PU SCH (08:50)
[2016-08-01] MEDS ORDERED: Potassium Chlor TAB* 20 MEQ TAB.ER PO ONE (09:00)
--- NOTE | 2016-08-01 11:17 | PN ---
Subjective Date of Service: 08/01/16 Interval History: Patient seen and examined at bedside. Reports significant improvement in breathing. Denies fever/chills, dizziness, palpitations, CP, SOB, abd pain, n/v. Reports improvement in leg swelling. Patient with 14 beat run of v-tach this AM; patient denies awareness or symptoms. No longer requiring O2. Telemetry: SR with PVCs 80s Family History: Unchanged from Admission Social History: Unchanged from Admission Past Medical History: Unchanged from Admission Objective Active Medications: Acetaminophen (Tylenol Tab*) 650 mg PO Q4H PRN PRN Reason: FEVER/PAIN Amiodarone HCl (Cordarone Tab*) 400 mg PO BID [facility] Last Admin: 08/01/16 08:48 Dose: 400 mg Atorvastatin Calcium (Lipitor*) 20 mg PO 1700 [facility] Last Admin: 07/31/16 17:16 Dose: 20 mg Dextrose (D50w Syringe 50 Ml*) 12.5 gm IV PUSH .FOR FS < 60 - SS PRN PRN Reason: FS < 60 Furosemide (Lasix Iv*) 40 mg IV SLOW PU 0800,1700 [facility] Last Admin: 08/01/16 08:50 Dose: 40 mg Insulin Human Lispro (Humalog*) 0 units SUBCUT AC [facility] PRN Reason: Protocol Last Admin: 08/01/16 08:50 Dose: 2 units Lisinopril (Prinivil Tab*) 2.5 mg PO DAILY [facility] Last Admin: 08/01/16 08:48 Dose: 2.5 mg Metoprolol Succinate (Toprol Xl Tab*) 50 mg PO BID [facility] Last Admin: 08/01/16 08:49 Dose: 50 mg Ondansetron HCl (Zofran Inj*) 4 mg IV Q6H PRN PRN Reason: NAUSEA Rivaroxaban (Xarelto (*)) 20 mg PO DAILY [facility] Last Admin: 08/01/16 08:49 Dose: 20 mg Spironolactone (Aldactone Tab*) 25 mg PO DAILY [facility] Last Admin: 08/01/16 08:50 Dose: 25 mg Vital Signs 07/31/16 07/31/16 07/31/16 11:30 11:36 11:52 Temperature 98.0 F Pulse Rate 82 112 Respiratory 27 23 Rate Blood Pressure 129/84 126/95 (mmHg) O2 Sat by Pulse 95 95 Oximetry 07/31/16 07/31/16 07/31/16 12:00 12:07 12:11 Temperature Pulse Rate 131 133 Respiratory 26 27 27 Rate Blood Pressure 115/91 122/97 (mmHg) O2 Sat by Pulse 95 95 Oximetry 07/31/16 07/31/16 07/31/16 12:14 12:17 12:20 Temperature Pulse Rate 130 81 70 Respiratory 27 25 24 Rate Blood Pressure 129/102 122/85 126/86 (mmHg) O2 Sat by Pulse 96 93 91 Oximetry 07/31/16 07/31/16 07/31/16 12:22 12:24 12:30 Temperature Pulse Rate 72 71 75 Respiratory 21 25 21 Rate Blood Pressure 126/89 122/97 118/69 (mmHg) O2 Sat by Pulse 89 97 96 Oximetry 07/31/16 07/31/16 07/31/16 12:45 12:48 13:00 Temperature Pulse Rate 71 70 Respiratory 24 24 21 Rate Blood Pressure 120/77 116/81 (mmHg) O2 Sat by Pulse 96 94 Oximetry 07/31/16 07/31/16 07/31/16 13:15 13:30 13:45 Temperature Pulse Rate 64 75 71 Respiratory 26 24 19 Rate Blood Pressure 111/77 114/83 108/69 (mmHg) O2 Sat by Pulse 93 94 94 Oximetry 07/31/16 07/31/16 07/31/16 13:49 14:00 14:30 Temperature Pulse Rate Respiratory 25 23 26 Rate Blood Pressure 114/75 100/75 (mmHg) O2 Sat by Pulse Oximetry 07/31/16 07/31/16 07/31/16 14:37 14:38 15:00 Temperature Pulse Rate 76 Respiratory 25 24 Rate Blood Pressure 103/59 (mmHg) O2 Sat by Pulse 97 97 Oximetry 07/31/16 07/31/16 07/31/16 15:30 16:46 19:26 Temperature 97.4 F 97.2 F Pulse Rate 73 76 70 Respiratory 17 22 32 Rate Blood Pressure 104/65 122/70 111/83 (mmHg) O2 Sat by Pulse 96 100 97 Oximetry 07/31/16 07/31/16 08/01/16 20:00 23:30 03:23 Temperature 97.4 F 97.2 F Pulse Rate 63 60 Respiratory 22 28 24 Rate Blood Pressure 138/86 107/56 (mmHg) O2 Sat by Pulse 95 99 Oximetry 08/01/16 08/01/16 07:21 08:00 Temperature 97.8 F Pulse Rate 64 Respiratory 18 16 Rate Blood Pressure 136/81 (mmHg) O2 Sat by Pulse 94 94 Oximetry Oxygen Devices in Use Now: None Appearance: Older male patient, sitting on edge of bed, NAD Eyes: PERRLA Ears/Nose/Mouth/Throat: Mucous Membranes Moist Neck: NL Appearance and Movements; NL JVP Respiratory: Symmetrical Chest Expansion and Respiratory Effort, Clear to Auscultation Cardiovascular: NL Sounds; No Murmurs; No JVD, RRR, - - 2+ pitting LE edema Abdominal: NL Sounds; No Tenderness; No Distention Extremities: No Clubbing, Cyanosis Skin: No Rash or Ulcers Neurological: Alert and Oriented x 3, NL Muscle Strength and Tone Lines/Tubes/Other Access: Clean, Dry and Intact Peripheral IV Nutrition: Taking PO's Result Diagrams: 07/31/16 06:45 08/01/16 06:43 Microbiology and Other Data: Microbiology 07/30/16 12:45 Nasal Screen MRSA (PCR)([facility]) - Final Nasal Mrsa Negative Assess/Plan/Problems-Billing Assessment: Mr. Branham is a 76 yo male with PMH significant for hx bioprosthetic aortic valve replacement, HTN, DM, and Left BBB who presented for an elective cardioversion and MATT and was found to have severe systolic heart failure in the setting of rapid atrial fib. - Patient Problems (1) Congestive heart failure (CHF) Code(s): I50.9 - HEART FAILURE, UNSPECIFIED Comment: Acute systolic heart failure with new cardiomyopathy, suspect secondary to tachycardia No longer requiring supplemental O2 Down 6# since admission MATT shows EF 20-25% Continue IV Lasix BID, aldactone, and lisinopril Daily weights and strict I+O's (2) Atrial fibrillation Code(s): I48.91 - UNSPECIFIED ATRIAL FIBRILLATION Comment: S/p cardioversion, now in SR with PVCs On amiodarone per Cardiology Continue metoprolol and Xarelto Follow electrolytes, goal K+ >4 and Mg+ > 2 (3) Diabetes Code(s): E11.9 - TYPE 2 DIABETES MELLITUS WITHOUT COMPLICATIONS Comment: Glucose checks AC Check HgbA1c Hold metformin Continue Lispro SS (4) History of coronary artery disease Code(s): Z86.79 - PERSONAL HISTORY OF OTHER DISEASES OF THE CIRCULATORY SYSTEM Comment: Continue metoprolol and atorvastatin (5) HTN (hypertension) Code(s): I10 - ESSENTIAL (PRIMARY) HYPERTENSION Comment: Normotensive Continue metoprolol and lisinopril (6) HLD (hyperlipidemia) Code(s): E78.5 - HYPERLIPIDEMIA, UNSPECIFIED Comment: Continue atorvastatin (7) GERD (gastroesophageal reflux disease) Code(s): K21.9 - GASTRO-ESOPHAGEAL REFLUX DISEASE WITHOUT ESOPHAGITIS Comment : (8) DVT prophylaxis Code(s): [id number] - Comment: Continue Xarelto (9) Full code status Code(s): Z78.9 - OTHER SPECIFIED HEALTH STATUS Status and Disposition: Inpatient. Discharge to home when medically stable.
[2016-08-01 11:25] VITALS: BP 105/68
--- NOTE | 2016-08-02 03:13 | DS ---
DISCHARGE SUMMARY: DATE OF ADMISSION: 07/30/16 DATE OF DISCHARGE: 08/01/16 PROVIDER: Lisa Armendariz NP ATTENDING PHYSICIAN: Marko Holder MD* (as dictated by Lisa Armendariz NP) CONSULTING PHYSICIAN: Cheikh May DO, Cardiology. PRIMARY CARE PROVIDER: Dr. Queen. PRIMARY DISCHARGE DIAGNOSES: 1. Systolic congestive heart failure. 2. Atrial fibrillation, status post cardioversion. SECONDARY DISCHARGE DIAGNOSES: 1. Left bundle-branch block. 2. Atrial fibrillation. 3. Congestive heart failure. 4. Cardiomyopathy. 5. Rheumatic fever. 6. Diabetes. 7. Coronary artery disease. 8. Hypertension. 9. Hyperlipidemia. 10. Gastroesophageal reflux disease. MEDICATIONS AT DISCHARGE: 1. Vitamin B12 500 mcg daily. 2. Xarelto 20 mg daily. 3. Furosemide 40 mg daily. 4. Metformin 500 mg daily. 5. Probiotic 1 capsule daily. New medications at discharge: 1. Spironolactone 25 mg daily. 2. Metoprolol succinate XL 50 mg b.i.d. This is a changing dosing. 3. Lisinopril 2.5 mg daily. 4. Atorvastatin 20 mg daily. 5. Amiodarone 400 mg b.i.d. x1 week and then switch to 200 mg daily. The patient should make the switch on 08/07/16. HOSPITAL COURSE OF STAY: For full details, please refer to the full medical record and the H and P provided by nurse practitioner, Doe Hernandez. In summary, Mr. Branham is a 76-year-old male who presented to Dr. May's office in followup and was found to have concern for shortness of breath, weight gain, and leg swelling. The patient had orthopnea and reported had approximately 20- pound weight gain over a few weeks. Dr. May had the patient undergo a MATT. The EF was noted to be 25% to 30% down from his previously documented ejection fractions. The patient was admitted and started on amiodarone drip and received IV diuresis. He was seen in consultation by Dr. May. Dr. May expressed concerns for the patient's severe systolic heart failure in the setting of rapid atrial fibrillation suspected for months. The patient' s EF was noted to be 20% to 25% with [id number] functional mitral regurgitation. No LA/MARISSA thrombus, normal functioning aortic bioprosthesis. The patient's medications were changed to include discontinuing diltiazem, change in metoprolol from 100 mg daily to 50 mg b.i.d., amiodarone loading, Aldactone, and lisinopril. The patient is continuing his Xarelto. On 07/31/16, the patient underwent a cardioversion, which he did tolerate well. The following day, the patient continued to have good weight loss. He does still have lower extremity edema, which he says has improved. He has had at least 6- pound weight loss if not more this time here. Additionally, he is off of supplemental O2 and is able to ambulate and tolerate activity without oxygen. He denies any chest pain, dizziness, palpitations, fever, or chills. His leg swelling is improving. The patient has been in sinus rhythm since 07/31/16. He did have a few episodes of nonsustained V- tach and SVTs for approximately 4 to 6 seconds. He was asymptomatic during these events. We did do electrolyte replacement. The patient is already receiving amiodarone and metoprolol. I did review these findings and the patient's condition with Cardiology and the patient is okay to go home from their standpoint at this time assuming the patient follows up with Dr. May within a week and maintains his new medication regimen. The patient is also to have a followup BMP and mag check next week, which has been communicated to the patient. He has a script for this lab draw. Additionally, I have discharged the patient home with his new medications until he is able to get his prescriptions filled at his pharmacy on Wednesday. These prescriptions have also been sent to the pharmacy in [place], which is unfortunately closed this weekend. The patient is in stable condition. Vital signs are stable. His heart rate is well maintained in the 60s. He is satting 95% to 100% on room air and tolerating activity well. The patient has been informed to continue to monitor his sleep at home. Keep record of this. The patient has also been referred to [facility] for further monitoring and for management of diabetes and medical comorbidities in order to prevent any further decompensation. CONCERNS AT DISCHARGE: Mr. Branham is discharged to home on 08/01/16 with plan to follow up with Dr. Queen and Dr. May. DIET: Heart-healthy diet. The patient was advised to not drink alcohol or caffeine. ACTIVITY: As tolerated. CONDITION: Improved, stable. DISPOSITION: To home. TIME SPENT: Time spent on this discharge was approximately 45 minutes. Again, this is only a brief summary of the patient's hospital course of stay. For full details, please refer to the full medical record. If you have any further questions or need further assistance, please feel free to contact me at . LISA ARMENDARIZ NP CC: Dr. Queen; Cheikh May, * [id number]/[facility] #: [id number]
== END 2016-08-01 16:08 | disposition home or self-care (01) | DRG 292 ==
LOC: CHICATH 06:39 → ICU 11:15 → MEDTELE 07-31 15:59
PROVIDERS: ADMIT Internal Medicine; ATTEND Internal Medicine
PROC: B246ZZ4 Ultrasonography of Right and Left Heart, Transesophageal (ICD-10-PCS; 2016-07-31)
PROC: 5A2204Z Restoration of Cardiac Rhythm, Single (ICD-10-PCS; principal; 2016-07-31 12:00)
DX: I09.81 Rheumatic heart failure (principal); I47.2 Ventricular tachycardia; I48.91 Unspecified atrial fibrillation; I42.9 Cardiomyopathy, unspecified; I47.1 Supraventricular tachycardia; I50.21 Acute systolic (congestive) heart failure; I25.10 Atherosclerotic heart disease of native coronary artery without angina pectoris; I11.0 Hypertensive heart disease with heart failure; I44.7 Left bundle-branch block, unspecified; E11.9 Type 2 diabetes mellitus without complications; E78.5 Hyperlipidemia, unspecified; K21.9 Gastro-esophageal reflux disease without esophagitis; E66.9 Obesity, unspecified; Z95.2 Presence of prosthetic heart valve; Z79.01 Long term (current) use of anticoagulants; Z79.84 Long term (current) use of oral hypoglycemic drugs; Z79.899 Other long term (current) drug therapy; Z82.49 Family history of ischemic heart disease and other diseases of the circulatory system; Z80.0 Family history of malignant neoplasm of digestive organs; Z68.38 Body mass index [BMI] 38.0-38.9, adult; Z88.0 Allergy status to penicillin
CPT/HCPCS: 36415; 71010; 80048; 80076; 80162; 83036; 83735; 83880; 84439; 84443; 85014; 85018; 85025; 85610; 85730; 87641; 92960; 93005; 93312; 93325; 94760; A9270-GY; J0282; J0461; J1160; J1940; J2250; J2310; J3010

== ENCOUNTER 2018-02-18 14:36 | Inpatient (IN) | payer MEDICARE ==
--- NOTE | 2018-02-18 15:25 | ED ---
Syncope/Near Syncope - HPI Summary HPI Summary: Patient is a 78 y/o M w/ c/o dizziness, syncope, head injury. Provider in room at 1458. is present in the room. He states that around 1230 or 1300, he became dizzy, went on the floor to his knees purposefully. Afterwards, he states that he fell forward but does not remembering doing so. He believes he had syncopal episode at this time. reports syncope was witnessed by niece. When patient came to, he states that he heard someone state, "call 911". Patient reports that he hit head on tile floor. 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 Patient notes that he had eaten before this syncopal episode. EMS arrived at the scene, evaluated patient, and asked if he wanted to come to ED. Patient reports that he was concerned with cost of ambulance, arrived to ED via private car instead. In the room, he denies chest pain, JEAN, SOB, abdominal pain, N/V. Patient reports no pain after the fall. Patient is on Xarelto, amiodarone. He is pre- diabetic, EMS did not check BG. In 2007, patient had open chest aortic valve replacement. No other surgeries are reported. 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 FMHx of ID, CVA. On triage, pain is denied, nothing is noted to aggravate/alleviate Sx. Home medications and allergies are reviewed. Allergies Allergy/AdvReac Type Severity Reaction Status Date / Time atorvastatin Allergy Rash Verified 02/18/18 14:56 monosodium glutamate Allergy dysrhythmia Verified 02/18/18 14:56 Penicillins Allergy Swelling Verified 02/18/18 14:56 Home Medications Amiodarone TAB* [Cordarone TAB*] 100 mg PO EVERY OTHER DAY 02/18/18 [History Confirmed 02/18/18] Cyanocobalamin TAB* [Vitamin B12 TAB*] 500 mcg PO DAILY 02/18/18 [History Confirmed 02/18/18] Lactobacillus Acidophilus [Probiotic Acidophilus] 1 tab PO DAILY 02/18/18 [ History Confirmed 02/18/18] Lisinopril TAB* [Prinivil TAB*] 2.5 mg PO DAILY 02/18/18 [History Confirmed ] Metoprolol Succinate XL TAB* [Toprol XL TAB*] 25 mg PO DAILY 02/18/18 [History Confirmed 02/18/18] Multivitamins/Minerals TAB* [Theragran/minerals TAB*] 1 tab PO DAILY 02/18/18 [ History Confirmed 02/18/18] metFORMIN* [Glucophage 500 MG TAB *] 500 mg PO EVERY OTHER DAY 02/18/18 [ History Confirmed 02/18/18] - History Of Current Complaint Chief Complaint: EDSyncope Time Seen by Provider: 02/18/18 15:06 Hx Obtained From: Patient Onset/Duration: Sudden Onset - onset at 1230 or 1300, Resolved - dizziness, syncope Timing: Hours - onset 1230 or 1300 today Context: Witnessed - niece, Loss Of Consciousness Activity At Onset: Other - standing Associated Head Trauma: Yes Aggravating Factor(s): Nothing Alleviating Factor(s): Nothing Associated Signs And Symptoms: Dizzy, Head Trauma (Recent) Frequency: Episodes x___ - 1, Episodes Lasting ____ (in Mins/Days/Weeks/Years) - mins - Allergies/Home Medications Allergies/Adverse Reactions: Allergies Allergy/AdvReac Type Severity Reaction Status Date / Time atorvastatin Allergy Rash Verified 02/18/18 14:56 monosodium glutamate Allergy dysrhythmia Verified 02/18/18 14:56 Penicillins Allergy Swelling Verified 02/18/18 14:56 Home Medications: Home Medications Cyanocobalamin TAB* [Vitamin B12 TAB*] 2,500 mcg PO DAILY 02/18/18 [History Confirmed 02/19/18] Lactobacillus Acidophilus [Probiotic Acidophilus] 1 tab PO DAILY 02/18/18 [ History Confirmed 02/18/18] Lisinopril TAB* [Prinivil TAB 5 MG*] 5 mg PO DAILY 02/18/18 [History Confirmed 02/19/18] Metoprolol Succinate XL TAB* [Toprol XL TAB*] 25 mg PO DAILY 02/18/18 [History Confirmed 02/18/18] Magnesium Oxide [Magnesium] 400 mg PO DAILY 02/19/18 [History Confirmed 02/19/18 ] Metformin HCl [Metformin HCl ER] 500 mg PO EVERY OTHER DAY 02/19/18 [History Confirmed 02/19/18] Pravastatin Sodium 40 mg PO DAILY 02/19/18 [History Confirmed 02/19/18] PMH/Surg Hx/FS Hx/Imm Hx Previously Healthy: No Endocrine/Hematology History: Reports: Hx Anticoagulant Therapy - xarelto, Hx Diabetes Cardiovascular History: Reports: Hx Atrial Fibrillation, Hx Congestive Heart Failure, Hx Coronary Artery Disease, Hx Valvular Heart Disease - Aortic Valve replacement 2007 Denies: Hx Peripheral Vascular Disease Respiratory History: Denies: Hx Chronic Obstructive Pulmonary Disease (COPD) History: Reports: Hx Kidney Stones - 1985 Musculoskeletal History: Denies: Hx Arthritis Sensory History: Denies: Hx Contacts or Glasses, Hx Hearing Aid Opthamlomology History: Denies: Hx Contacts or Glasses Neurological History: Denies: Hx Headaches, Hx Seizures, Hx Transient Ischemic Attacks (TIA) - Surgical History Surgery Procedure, Year, and Place: Aortic valve replacement - - 2007 Infectious Disease History: No Infectious Disease History: Denies: Traveled Outside the [place] in Last 30 Days - Family History Known Family History: Positive: Cardiac Disease - ID, Other - FMHx of CVA - Social History Lives: With Family Alcohol Use: None Substance Use Type: Reports: None Smoking Status (MU): Never Smoked Tobacco Review of Systems Constitutional: Negative Eyes: Negative Negative: Chest Pain Negative: Shortness Of Breath Negative: Abdominal Pain, Vomiting, Nausea Positive: no symptoms reported Musculoskeletal: Negative Skin: Negative Neurological: Other - POSITIVE - DIZZINESS, HEAD INJURY Positive: Syncope. Negative: Headache Psychological: Normal All Other Systems Reviewed And Are Negative: Yes Physical Exam - Summary Physical Exam Summary: Appearance: ill-appearing, no pain distress, well-nourished, tachycardic, irregularly irregular Skin: Warm, color reflects adequate perfusion, dry; 2 cm ecchymosis at left frontal forehead with superficial 2 cm abrasion Head: ecchymosis and abrasion as above Eyes: Conjunctiva clear ENT: Normal inspection; PERRL, EOMI, no nystagmus Neck: Supple, no nodes, no JVD Respiratory: no respiratory distress, decreased breath sounds throughout Cardio: tachycardic, irregularly irregular, No murmur, pulses normal, brisk capillary refill Abdomen: Soft, nontender, no masses, non-distended Bowel sounds: Present Musculoskeletal: Strength Intact/ROM intact, no calf tenderness, no edema. Psychological: Normal Neuro: Alert, muscle tone normal, no focal deficit Triage Information Reviewed: Yes Vital Signs On Initial Exam: Initial Vitals Temp Pulse Resp BP Pulse Ox 98.6 F 108 16 143/68 96 02/18/18 14:48 02/18/18 14:48 02/18/18 14:48 02/18/18 14:48 02/18/18 14:48 Vital Signs Reviewed: Yes Diagnostics - Vital Signs Vital Signs Temp Pulse Resp BP Pulse Ox 02/18/18 14:48 98.6 F 108 16 143/68 96 - Laboratory Result Diagrams: 02/19/18 05:56 02/19/18 05:52 Lab Statement: Any lab studies that have been ordered have been reviewed, and results considered in the medical decision making process. - Radiology CXR Radiology Interpretation Completed By: Radiologist Summary of Radiographic Findings: CXR IMPRESSION: 1. CARDIOMEGALY AND POSTSURGICAL CHANGES, UNCHANGED. 2. FINDINGS CONSISTENT WITH COPD, NO EVIDENCE FOR ACUTE FINDING. THIS REPORT WAS REVIEWED BY ED PHYSICIAN. - CT BRAIN CT CT Interpretation Completed By: Radiologist Summary of CT Findings: BRAIN CT IMPRESSION: NO ACUTE INTRACRANIAL PATHOLOGY. THIS REPORT WAS REVIEWED BY ED PHYSICIAN. MAXILLOFACIAL CT CT Interpretation Completed By: Radiologist Summary of CT Findings: MAXILLOFACIAL CT IMPRESSION: NO FACIAL FRACTURE. THIS REPORT WAS REVIEWED BY ED PHYSICIAN. - EKG 1502 Cardiac Rate: Other Rate - afib with rate of 122 BPM EKG Rhythm: Atrial Fibrillation ST Segment: Non-Specific Ectopy: None EKG Comparison: Other - present rate of EKG is faster compared to EKG from 08/24, both afib Summary of EKG Findings: EKG at 1502 revealed afib with rate of 122 BPM, prolonged IVCT in LBBB, prolonged QTC 505. Compared with EKG from 08/24/17, present EKG rate is faster. No acute changes, no ectopy. Re-Evaluation - Re-Evaluation First Eval Re-Evaluation Time: 16:20 Comment: Patient's rate in room was 112, family in room with patient. He denies chest pain at this time. Admission was discussed, patient was agreeable to admit. Course/Dx Course Of Treatment: Patient is a 78 y/o M w/ c/o dizziness, syncope, head injury. He states that around 1230 or 1300, he became dizzy, went on the floor to his knees purposefully. Afterwards, he states that he fell forward but does not remembering doing so. He believes he had syncopal episode at this time. reports syncope was witnessed by niece. When patient came to, he states that he heard someone state, "call 911". Patient reports that he hit head on tile floor. 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 Patient notes that he had eaten before this syncopal episode. EMS arrived at the scene, evaluated patient, and asked if he wanted to come to ED. Patient reports that he was concerned with cost of ambulance, arrived to ED via private car instead. In the room, he denies chest pain, JEAN, SOB, abdominal pain, N/V. Patient reports no pain after the fall. Patient is on Xarelto, amiodarone. He is pre-diabetic, EMS did not check BG. In 2007, patient had open chest aortic valve replacement. No other surgeries are reported. 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 FMHx of ID, CVA. On physical exam, patient is noted to be ill-appearing, tachycardic and irregularly irregular. There is a 2 cm ecchymosis at left frontal forehead with superficial abrasion. MAXILLOFACIAL CT IMPRESSION: NO FACIAL FRACTURE. CXR IMPRESSION: 1. CARDIOMEGALY AND POSTSURGICAL CHANGES, UNCHANGED. 2. FINDINGS CONSISTENT WITH COPD, NO EVIDENCE FOR ACUTE FINDING. BRAIN CT IMPRESSION: NO ACUTE INTRACRANIAL PATHOLOGY. EKG at 1502 revealed afib with rate of 122 BPM, prolonged IVCT in LBBB, prolonged QTC 505. Compared with EKG from 08/24/17, present EKG rate is faster. No acute changes, no ectopy. Labs showed TSH 0.91, BNP 401, trop 0.07, CK-MB 2.6, lactic acid 1.6, glucose 155, creatinine 1.95, BUN 33, potassium 5.4, APTT 39.8, INR 1.68, D-dimer < 200, absolute monos 1.2, absolute neuts 11.2, MCH 32, MCV 95, WBC 13.9. During ED course, patient received Lopressor 5 mg IV ED ONCE for the afib with RVR, and decreased rate resulted, still afib. 1616 - Patient's case was discussed with Dr. Mesa. Dr. Mesa accepts patient for admission, will start patient on metoprolol. - Diagnoses Provider Diagnoses: Syncope, Hyperkalemia, Rapid atrial fibrillation, Head injury, CHF (congestive heart failure) - Physician Notifications Discussed Care of Patient With: Josette Mesa Time Discussed With Above Provider: 16:16 Instructed by Provider To: Other - 1616 - Patient's case was discussed with Dr. Mesa. Dr. Mesa accepts patient for admission, will start patient on metoprolol. - Critical Care Time Critical Care Time: 30-74 min - 30 minutes Discharge - Sign-Out/Discharge Documenting (check all that apply): Patient Departure - admit - Discharge Plan Condition: Good Disposition: ADMITTED TO [facility] - Billing Disposition and Condition Condition: GOOD Disposition: Admitted to [facility] - Attestation Statements Document Initiated by Keiko: Yes Documenting Scribe: FRANCIS TIDWELL Provider For Whom Pradeepe is Documenting (Include Credential): ROMAIN MAE MD Scribe Attestation: FRANCIS Garrison , scribed for ROMAIN MAE MD on 02/21/18 at 2238. Scribe Documentation Reviewed: Yes Provider Attestation: The documentation as recorded by the FRANCIS mike accurately reflects the service I personally performed and the decisions made by , ROMAIN MAE MD Status of Scribe Document: Viewed
[2018-02-18 15:32] LABS: ABS Basophils 0.1 10^3/ul (0-0.2); ABS Eosinophils 0.1 10^3/ul (0-0.6); ABS Lymphocytes 1.3 10^3/ul (1.0-4.8); ABS Monocytes 1.2 10^3/ul (0-0.8); ABS Neutrophils 11.2 10^3/ul (1.5-7.7); ABS Nucleated RBC 0 10^3/ul; Eosinophil % 0.4 %; Hematocrit 46 % (42-52); Hemoglobin 15.3 g/dl (14.0-18.0); Lymphocyte % 9.5 %; Mean Corpuscular HGB Conc 33 g/dl (31-36); Mean Corpuscular Hemoglobin 32 pg (27-31); Mean Corpuscular Volume 95 fL (80-94); Mean Platelet Volume 8.1 fL (7.4-10.4); Nucleated Red Blood Cells % 0; Platelet Count 193 10^3/ul (150-450); Red Blood Count 4.82 10^6/ul (4.00-5.40); Red Cell Distribution Width 14 % (10.5-15); White Blood Count 13.9 10^3/ul (3.5-10.8)
[2018-02-18 15:43] LABS: INR 1.68 (0.77-1.02)
[2018-02-18 15:49] LABS: EGFR Non-African American 33.4 (>60)
[2018-02-18] MEDS ORDERED: Metoprolol Tartrate IV* 1 MG/ML 5 ML VIAL IV ONE (16:18)
[2018-02-18] MEDS ORDERED: Acetaminophen TAB* 325 MG PO PRN (18:15)
[2018-02-18] MEDS ORDERED: Ondansetron ODT TAB* 4 MG SL PRN (18:15)
[2018-02-18] MEDS ORDERED: Aspirin TAB* 325 MG PO ONE (18:22)
--- NOTE | 2018-02-19 04:29 | HP ---
CC: Dr. May* [facility] MEDICINE HISTORY AND PHYSICAL: DATE OF ADMISSION: 02/18/18 ATTENDING PHYSICIAN: Ute Hunt MD * (dictation provided by Jakci Chapin NP). CHIEF COMPLAINT: Syncope. HISTORY OF PRESENT ILLNESS: Mr. Branham is a 78-year-old male with a past medical history of atrial fibrillation status post multiple cardioversions, currently on amiodarone and Xarelto, hypertension, porcine aortic valve replacement in 2007, history of cardiomyopathy last noted ejection fraction was 45% to 50% who presents to the hospital today with an episode of syncope. Mr. Branham states he has been in his normal state of health. He has been completely asymptomatic and feeling well. However, he checks his heart rate on a daily basis with a home machine. He states that since Wednesday after he ate some MSG in a meal, he has had continuous atrial fibrillation every time he had checked. He feels completely asymptomatic from this. He denies lightheadedness , dizziness, chest pain, shortness of breath. He has had no lower extremity edema. 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 He states he fell to his knees because he did not want to fall down to hurt himself. As soon as he hit the floor on his knees, he does not remember anything. The patient apparently hit his head. This event was witnessed and the witnesses state he was out for about 2 seconds. When he awoke, he was oriented. He had no loss of bowel or bladder. He did not bite his tongue. He denies any recent concerns or illness and specifically denies chest pain, shortness of breath, fever, chills, cough, nausea, vomiting, diarrhea, abdominal pain. In the emergency room, Mr. Branham was confirmed to be in atrial fibrillation, as we would suspect, with a heart rate running about 100 to 120, blood pressure was running at 120 to 140 systolically. His labs showed a magnesium at 2.3, sodium of 138, potassium 5.4; however, his troponin was elevated to 0.07. PAST MEDICAL HISTORY: 1. Atrial fibrillation. 2. Hypertension. 3. Hyperlipidemia. 4. Coronary artery disease. 5. History of obesity. 6. GERD. 7. Porcine aortic valve replacement in 2007. 8. Left bundle-branch block. 9. History of cardiomyopathy with chronic systolic congestive heart failure, last noted ejection fraction 45% to 50%. MEDICATIONS: 1. Amiodarone 100 mg p.o. every other day. 2. Spironolactone 12.5 mg p.o. every other day. 3. Metoprolol succinate 25 mg p.o. daily. 4. Furosemide 20 mg p.o. every other day. 5. Multivitamin with mineral 1 tab p.o. daily. 6. Lisinopril 2.5 mg p.o. daily. 7. Lactobacillus 1 tab p.o. daily. 8. Vitamin B12 500 mcg p.o. daily. 9. Rivaroxaban 20 mg p.o. daily. ALLERGIES: To ATORVASTATIN, MONOSODIUM GLUTAMATE, and PENICILLINS. FAMILY HISTORY: He reported his father had related to CVA. Mother had colon cancer. SOCIAL HISTORY: No report of alcohol, tobacco, or drug use. The patient lives with his and she will be the healthcare proxy. REVIEW OF SYSTEMS: A 14-point review of systems was completed with Mr. Branham and all those not mentioned above were negative. PHYSICAL EXAMINATION GENERAL: Mr. Branham is sitting up in the bed. He is in no acute distress. His family is at the bedside. VITAL SIGNS: Temperature 98.6, pulse rate 104, respiratory rate 17, O2 saturation 97% on room air, blood pressure 124/76. LUNGS: Clear to auscultation bilaterally with no accessory muscle use and good aeration. HEART : S1, S2. No murmur, rub, or gallop and regular. ABDOMEN: Soft, nontender with bowel sounds positive x4. EXTREMITIES: No cyanosis or edema. NEURO: He is alert. He is oriented x3. He moves all extremities equally. There is no facial asymmetry or focal weakness. Extraocular movements are intact. SKIN: Intact. LABORATORY DATA/DIAGNOSTIC STUDIES: Sodium 138, potassium 5.4, chloride 104, serum bicarbonate 26, BUN 33, creatinine 1.95, glucose 155. Lactic acid 1.6. Troponin 0.07. BNP 401. TSH 0.91. WBC 13.9, hemoglobin 15.3, hematocrit 46, platelet count 193. INR 1.68. D-dimer less than 200. Chest x-ray shows cardiopulmonary and stigmata of COPD. CT brain shows no acute injury. Maxillofacial CT shows no acute injury. ASSESSMENT AND PLAN: Mr. Branham is a 78-year-old male with a past medical history of atrial fibrillation, cardiomyopathy with chronic systolic congestive heart failure and ejection fraction of 45% to 50% who presents to the hospital today after a syncopal episode and with an elevated troponin. Our plans are for observation in the hospital for the followin. Syncopal episode: Based on the description of his symptoms it appears that it would be most likely related to an arrhythmia. He is in atrial fibrillation , but is asymptomatic. Plan to continuously monitor on telemetry monitoring. His last echocardiogram per his report was about [address] May. I do not see an indication for a repeat echocardiogram at this time. I would recommend that he would likely benefit from placement of a loop recorder at the time of discharge. The patient has no evidence of illness or other symptomatology to explain his syncopal episode. 2. Elevated troponin. Plan to repeat x2 additional troponins. I suspect this is likely demand ischemia given stress related to the syncopal episode and transport to the emergency room. We will repeat as stated. We can involve cardiology if needed based on the subsequent values, but I think at this time there is no indication for changing any of his current medication regimen, which already includes lisinopril and metoprolol. He is allergic to atorvastatin. We can give him an aspirin x1 tonight. 3. Hypertension. Continue metoprolol and lisinopril. 4. Atrial fibrillation. The patient's heart rate is slightly uncontrolled, but only around 100. He was given one time extra dose of metoprolol. Plan to monitor for now, but we can add additional agents if needed, if his heart rate is less controlled. He is typically completely asymptomatic. His electrolytes are appropriately repleted. I plan to continue his amiodarone and his Xarelto. 5. Question of diabetes. The patient states he does not have a history of diabetes. He is no longer on metformin. I encouraged followup with his outpatient providers if need be. 6. History of chronic systolic congestive heart failure. No evidence of acute exacerbation. Plan to continue home furosemide every other day. 7. Code status is full code. TIME SPENT: Approximately 60 minutes was spent on the admission of this patient , more than half of the time was spent with the patient at the bedside reviewing the events leading up to this hospitalization, performing the physical examination, and reviewing my plan of care. JACKI CHAPIN NP [id number]/CPS #: [id number] DOROTHY
[2018-02-19 06:22] LABS: ABS Basophils 0 10^3/ul (0-0.2); ABS Eosinophils 0.2 10^3/ul (0-0.6); ABS Neutrophils 6.6 10^3/ul (1.5-7.7); ABS Nucleated RBC 0 10^3/ul; Eosinophil % 2.1 %; Hematocrit 46 % (42-52); Hemoglobin 15.1 g/dl (14.0-18.0); Mean Corpuscular HGB Conc 33 g/dl (31-36); Mean Corpuscular Hemoglobin 32 pg (27-31); Mean Corpuscular Volume 98 fL (80-94); Mean Platelet Volume 7.9 fL (7.4-10.4); Nucleated Red Blood Cells % 0.1; Platelet Count 188 10^3/ul (150-450); Red Blood Count 4.71 10^6/ul (4.00-5.40); Red Cell Distribution Width 14 % (10.5-15); White Blood Count 9.8 10^3/ul (3.5-10.8)
[2018-02-19] MEDS ORDERED: Amiodarone TAB* 200 MG PO ONE (08:32)
[2018-02-19] MEDS ORDERED: Aspirin 81 mg CHEW TAB* 81 MG TAB.CHEW PO SCH (09:00)
[2018-02-19] MEDS ORDERED: Lisinopril TAB* 5 MG PO SCH (09:00)
[2018-02-19] MEDS: Multivitamins/Minerals TAB PO SCH (09:30)
[2018-02-19] MEDS: Cyanocobalamin TAB* 500 MCG PO SCH (09:30)
[2018-02-19] MEDS: Metoprolol Succinate XL TAB* 25 MG PO SCH (09:30)
[2018-02-19 09:48] LABS: EGFR Non-African American 48.2 (>60)
--- NOTE | 2018-02-19 09:59 | CONSULT ---
Subjective Date of Service: 02/19/18 Interval History: Date of admission 02/18/2018 Date of consult 02/19/2018 PMD: Dr. Queen CC: Atrial fibrillation, syncope Reason for consult: Same HPI: Damon Branham is a 78 year old man well known to me with a history as below. On his routine morning pulse check he felt himself go into atrial fibrillation this Wednesday. He was entirely asymptomatic at that time. He takes xarelto every day without any missed dosing. He has had no chest discomfort, dyspnea, edema or palpitations. He was walking into a kitchen and felt sudden onset lightheadedness. He fell to his knees because he did not want to get hurt. After this he does not remember anything. He syncopized, apparently only very briefly and he does have head trauma above his eye. He is back to his baseline functional status but remains in atrial fibrillation rapid. He has a detectable troponin in the setting of his known cardiovascular disease but ruled out for ACS. I reviewed with his EP, Dr. Smith. He recommended against changing to tikosyn acutely without an amiodarone washout period. Recommendations are for increased amiodarone dose, cardioversion and outpatient ablation which he will arrange. Of note, patient states he is willing to go through any testing and procedures but feels it is his time to and he is perfectly ok with that. ALLERGIES: To ATORVASTATIN, MONOSODIUM GLUTAMATE, and PENICILLINS. FAMILY HISTORY: He reported his father had related to CVA. Mother had colon cancer. SOCIAL HISTORY: No report of alcohol, tobacco, or drug use. The patient lives with his and she will be the healthcare proxy. 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 Kory Carbajal at [facility]. Aortic valve replacement with a #25 Maxi Snow magna tissue valve. Had post- operative atrial fibrillation resolved with amiodarone Cardioversion - (07/31/2016) External electrical cardioversion from atrial fibrillation to sinus rhythm Cardioversion - (03/30/2017) SVT consider 2:1 atrial tachycardia vs. atrial flutter with venticular rate ~ 110 bpm.. No response to adenosine. 5 mg IV versed and 50 mcg IV fentanyl used for sedation, succesfully cardioverted 75J from to sinus bradycardia high 40's changed to sinus rhythm 60's once woke up. Cardioversion - (08/24/2017) Patient converted from atrial fibrillation to 2:1 atrial flutter V-rate 100 bpm with 120 J Paitent converted from atrial flutter to sinus rhythm with 75 J Medications Active Medications: Acetaminophen (Tylenol Tab*) 650 mg PO Q6H PRN PRN Reason: PAIN Cyanocobalamin (Vitamin B12 Tab*) 500 mcg PO DAILY [facility] Last Admin: 02/19/18 09:30 Dose: 500 mcg Furosemide (Lasix Tab*) 20 mg PO EVERY OTHER DAY [facility] Lisinopril (Prinivil Tab*) 2.5 mg PO DAILY [facility] Last Admin: 02/19/18 09:27 Dose: Not Given Metoprolol Succinate (Toprol Xl Tab*) 25 mg PO DAILY [facility] Last Admin: 02/19/18 09:30 Dose: 25 mg Multivitamins/Minerals (Theragran/Minerals Tab*) 1 tab PO DAILY [facility] Last Admin: 02/19/18 09:30 Dose: 1 tab Ondansetron HCl (Zofran Odt Tab*) 4 mg SL Q6H PRN PRN Reason: NAUSEA/VOMITING Rivaroxaban (Xarelto(*)) 20 mg PO DAILY [facility] Home Medications: Current meds prior to visit: Magnesium Oxide 400 mg 1 by mouth every day Lisinopril 5 mg 1 by mouth every day Pravastatin Sodium 40 mg 1 by mouth every day Metoprolol Succinate ER 25 mg 1/2 by mouth every day Amiodarone HCL 100 mg 1 by mouth every day. Furosemide 20 mg 1 tab by mouth every other day Metformin HCL ER 500 mg 1 by mouth every other day Xarelto 20 mg 1 by mouth every day Vitamin B-12 2500mcg 1 by mouth every day ( increase med 1 month ago) Probiotic 1 by mouth every other day Spironolactone 25 mg 1/2 by mouth every other day with furosemide (lasix) Review of Systems - Measurements Intake and Output: Intake and Output Last 24 Hours 02/17/18 02/18/18 02/19/18 02/20/18 06:59 06:59 06:59 06:59 Intake Total 50 240 Balance 50 240 Weight 242 lb 3.2 oz Intake: Oral 50 240 Other: Estimated Void Medium # Bowel Movements 0 # Voids 1 - Review of Systems Constitutional Symptoms: Positive: Other Negative: Weight Gain, Weight Loss, Weakness, Fatigue, Fever, Night Sweats Dermatology: Negative: Rash, Skin Lesions HEENT: Negative: Change in Hearing, Vertigo, Dental Problems Eyes: Negative: Change in Vision, Double Vision Thyroid: Negative: Thyroid Nodule, Cold Intolerance, Heat Intolerance, Sweatiness, Constipation, Primary Hypothyroidism, Primary Hyperthyroidism Pulmonary: Negative: Cough, Sputum, Hemoptysis, Wheezing, Respiratory Distress, Shortness of Breath, Asthma, Exercise Intolerance Cardiology: Positive: Syncope Negative: Chest Pain, Shortness of Breath, Palpitations, Swelling of Ankles, Peripheral Vascular Dis, Edema, Claudication, Paroxysmal Nocturnal Dyspnea, Orthopnea Gastroenterology: Negative: Nausea, Vomiting, Anorexia, Heartburn, Constipation, Diarrhea, Haematemesis, Melena Genital - Urinary: Negative: Dysuria, Hematuria, Nocturia Musculoskeletal: Negative: Joint Pain, Joint Stiffness Endocrinology: Positive: Obesity, Diabetes Negative: Diabetic Foot Ulcers, Polydipsia, Polyuria Hematologic/Lymphatic: Positive: Use of Anticoagulant Negative: Use of Antiplatelet Drugs Neurology: Negative: Change in Speech, Change in Sphincter Function, Hx of Stroke\TIA, Hx Seizures Psychiatry: Negative: Unusual Anxiety, Suicidal Ideation Allergic/Immunologic: Negative: Hx HIV, Immunocompromise Review of Systems Statement: All other review of systems negative, unless stated above. Objective Vital Signs: Temp Pulse Resp BP Pulse Ox 98.0 F 83 16 126/82 98 02/19/18 08:10 02/19/18 08:10 02/19/18 08:10 02/19/18 08:10 02/19/18 08:10 Oxygen Devices in Use Now: None Appearance: nad, pleasant Ears/Nose/Mouth/Throat: Clear Oropharnyx Neck: Trachea Midline Respiratory: Clear to Auscultation, - - mild increased work of breathing Cardiovascular: No Edema, - - + sternotomy scar, irregularly irregular, soft systolic murmur Abdominal: NL Sounds; No Tenderness; No Distention, - - obese Extremities: No Edema, No Clubbing, Cyanosis Skin: No Rash or Ulcers Neurological: Alert and Oriented x 3 Laboratory Results: 02/19/18 05:56 02/19/18 05:52 INR (Anticoag Therapy) 1.68 (0.77-1.02) H 02/18/18 15:20 APTT 39.8 seconds (26.0-36.3) H 02/18/18 15:20 Total Bilirubin 0.40 mg/dL (0.2-1.0) 02/18/18 15:20 AST 23 U/L (13-39) 02/18/18 15:20 ALT 19 U/L (7-52) 02/18/18 15:20 Alkaline Phosphatase 52 U/L (34-104) 02/18/18 15:20 CK-MB (CK-2) 2.6 ng/mL (0.6-6.3) 02/18/18 15:20 B-Natriuretic Peptide 401 pg/mL (<=100) H 02/18/18 15:20 Total Protein 7.3 g/dL (6.4-8.9) 02/18/18 15:20 Albumin 4.4 g/dL (3.2-5.2) 02/18/18 15:20 Globulin 2.9 g/dL (2-4) 02/18/18 15:20 Albumin/Globulin Ratio 1.5 (1-3) 02/18/18 15:20 TSH 0.91 mcIU/mL (0.34-5.60) 02/18/18 15:20 02/18/18 02/18/18 02/18/18 15:20 18:12 22:59 Troponin I 0.07 H* 0.07 H* 0.07 H* Diagnostic Imaging: Holter Monitor - (04/19/2017) Min HR 42 bpm, avg 60 bpm, max 94 bpm, no significant pauses or arrhythmias. Test performed on 25 mg of toprol daily and 100 mg of amiodarone every other day. Echocardiogram - (08/24/2016) Normal LV size, mild-moderate LVH, LVEF 50%, LA mild-moderately dilated, mild MR T E E - (07/07/2007) Post op MATT shows nromal functioning bioprosthetic aortic valve no evidence of stenosis (max velocity 1.5-1.8 m/s), trivial intravalvular AR, mild-mod MAC with mild-mod MR (decreased post-op), moderate LVH, post- operative LVEF appeared mildly depressed EKG - (07/24/2016) Afib rate 115 bpm, LBBB Cardiac catheterization - (07/01/2007) Dr. Gay [facility] via right groin: Separate ostia for LAD and Lcx, LVEF 35-40%, critical , mild non-obstructive CAD, severe pHTN 81/31 in setting of PCWP 29 mmHg Transesophogeal Echo - (07/30/2016) Patient in rapid atrial fibrillation at time of study. LVEF 20-25%. moderate LA dilation, At least moderate functional MR. No LA/MARISSA thrombus, Normal bioprosthetic aortic valve function. Mild RV dilation with moderately reduced function, moderate atherosclerotic plaque in the Arch and Desc.AO EKG - (03/30/2017) 2:1 aflutter vs. atrial tachycardia ventricular rate 110 bpm Admisison studies Chest x-ray shows cardiopulmonary and stigmata of COPD. CT brain shows no acute injury. Maxillofacial CT shows no acute injury. Assessment/Plan In summary Damon Branham is a 78-year-old man with a history of bioprosthetic aortic valve replacement 2007 for severe , history non-obstructive CAD 2007, DM, HTN, left bundle branch block, tachyardia (atrial fibrillation) mediated systolic HF LVEF 20% now improved to 50% s/p cardioversion 07/31/2016. Has had recurrent cardioversions for rate elevated asymptomatic atrial flutter/ fibrillation, 03/2017, 05/2017 and 08/2017. Asymptomatic sinus bradycardia has prevented higher amiodarone dosing in the past. He is now admitted with syncope and mild GLADIS with a very short prodrome in the setting of several days of rapid atrial fibrillation. - Home medications need reconciled (see above which is accurate) - Continue toprol 25 mg po daily for now (home dose is 12.5 mg will decrease back soon) - Hold home Acei/lasix/aldactone (home dosing is as above) - Oral amiodarone load with 400 mg po tid with cardioversion later today given his history of severe atrial fibrillation mediated HF (ordered) with plans for outpatient ablation with Dr. Smith - Given history of conduction system disease and cardiac history, I am concerned about a danyell or ventricular arrhythmia as a cause of his syncope. Will arrange for an implantable linq monitor on Wednesday. Risks, benefits and alternatives to above plan of care were discussed and patient wishes to proceed. Thank you for allowing me to participate in the cardiovascular care of this patient. Please do not hesitate to contact me with questions or concerns.
[2018-02-19] MEDS: Amiodarone TAB* 400 MG PO SCH ×3 (11:14→20:19)
[2018-02-19] MEDS: Rivaroxaban TAB(*) 20 MG TAB PO SCH (11:15)
[2018-02-19] MEDS ORDERED: Flumazenil* 0.1 MG/ML 5 ML MDV ONE (15:23)
[2018-02-19] MEDS ORDERED: Midazolam* 1 MG/ML 10 ML VIAL (10 MG) ONE (15:23)
[2018-02-19] MEDS ORDERED: fentaNYL* 50 MCG/ML 2 ML VIAL (100 MCG VIAL) ONE (15:23)
[2018-02-19] MEDS ORDERED: Naloxone* 0.4 MG/ML 1 ML VIAL ONE (15:23)
--- NOTE | 2018-02-19 16:14 | PN ---
Subjective Date of Service: 02/19/18 Interval History: Patient seen and examined. states he is feeling well, cannot feel his afib/ tachycardia at present (HR in 120's and irregular). Denies chest pain, no acute SOB. Dr. May also at bedside for evaluation. Objective Active Medications: Acetaminophen (Tylenol Tab*) 650 mg PO Q6H PRN PRN Reason: PAIN Amiodarone HCl (Cordarone Tab*) 400 mg PO TID [facility] Last Admin: 02/19/18 12:53 Dose: Not Given Cyanocobalamin (Vitamin B12 Tab*) 500 mcg PO DAILY [facility] Last Admin: 02/19/18 09:30 Dose: 500 mcg Metoprolol Succinate (Toprol Xl Tab*) 25 mg PO DAILY [facility] Last Admin: 02/19/18 09:30 Dose: 25 mg Multivitamins/Minerals (Theragran/Minerals Tab*) 1 tab PO DAILY [facility] Last Admin: 02/19/18 09:30 Dose: 1 tab Ondansetron HCl (Zofran Odt Tab*) 4 mg SL Q6H PRN PRN Reason: NAUSEA/VOMITING Rivaroxaban (Xarelto(*)) 20 mg PO DAILY [facility] Last Admin: 02/19/18 11:15 Dose: 20 mg Vital Signs - 8 hr 02/19/18 02/19/18 08:10 11:36 Temperature 98.0 F Pulse Rate 83 93 Respiratory 16 16 Rate Blood Pressure 126/82 102/71 (mmHg) O2 Sat by Pulse 98 98 Oximetry Oxygen Devices in Use Now: None Appearance: alert, NAD Eyes: No Scleral Icterus, PERRLA Ears/Nose/Mouth/Throat: NL Teeth, Lips, Gums, Mucous Membranes Moist Neck: NL Appearance and Movements; NL JVP, Trachea Midline Respiratory: Symmetrical Chest Expansion and Respiratory Effort, - - diminished bases, mild accessory muscle use Cardiovascular: NL Sounds; No Murmurs; No JVD, No Edema, - - afib with RVR Abdominal: NL Sounds; No Tenderness; No Distention Extremities: No Edema, No Clubbing, Cyanosis Skin: No Rash or Ulcers Neurological: Alert and Oriented x 3, NL Sensation, NL Muscle Strength and Tone Nutrition: Taking PO's, - - will be NPO for procedure Result Diagrams: 02/19/18 05:56 02/19/18 05:52 Assess/Plan/Problems-Billing Assessment: This is a 78 year old male with history of recurrent afib that presented to the ED with complaint of syncope of unclear etiology, found to be in afib with RVR. - Patient Problems (1) Syncope and collapse Code(s): R55 - SYNCOPE AND COLLAPSE SNOMED Code(s): 032630121 Comment: - No new arrhythmias noted on tele, currently in afib since wednesday - Scheduled for Linq recorder on Wednesday - Cardiology consult appreciated (2) Atrial fibrillation Code(s): I48.91 - UNSPECIFIED ATRIAL FIBRILLATION SNOMED Code(s): 45780507 Comment: - Has not wanted tikosyn in the past and will need washout period if initiating - Presently on amiodarone daily, dose increased per cardio - Will undergo cardioversion today, ablation to be planned outpatient - Continue metolprolol at increased dose - Xarelto may need to be renally dosed - Goal lytes at K>4 and Mg> 2 (3) GLADIS (acute kidney injury) Code(s): N17.9 - ACUTE KIDNEY FAILURE, UNSPECIFIED SNOMED Code(s): 86790553 Comment: - Unclear if medication induced or CKD - On lisinopril, metformin and xarelto (currently on hold) - Avoid nephrotoxic medications (4) Congestive heart failure (CHF) Code(s): I50.9 - HEART FAILURE, UNSPECIFIED SNOMED Code(s): 45643065 Comment: - Chronic systolic without acute exacerbation - Concern for renal function while on lasix and aldactone - I&O and daily weights - Patient did state he had 'fast food" prior to going back into afib (5) Diabetes Code(s): E11.9 - TYPE 2 DIABETES MELLITUS WITHOUT COMPLICATIONS SNOMED Code(s) : 37571490 Comment: - On metformin at home, currently on hold - BG stable (6) HLD (hyperlipidemia) Code(s): E78.5 - HYPERLIPIDEMIA, UNSPECIFIED SNOMED Code(s): 80264822 Comment: - Continue atorvastatin (7) HTN (hypertension) Code(s): I10 - ESSENTIAL (PRIMARY) HYPERTENSION SNOMED Code(s): 54827294 Comment: - Holding lisinopril, stable on BB (8) DVT prophylaxis Code(s): BKO1915 - SNOMED Code(s): 891118618 Comment: - on Shannon (9) Full code status Code(s): Z78.9 - OTHER SPECIFIED HEALTH STATUS SNOMED Code(s): 553029384 Status and Disposition: Inpatient, DC home when medically stable
--- NOTE | 2018-02-19 17:21 | PROCNOTE ---
Cardiology Procedure Note 02/19/2018 External electrical cardioversion Patient has been taking xarelto 20 mg po daily for at least a month without interruption so MATT not performed prior. Risks, benefits alternatives discussed patient wished to proceed 5 mg IV versed, 75 mcg Iv fentanyl used for conscious sedation. Patient successful cardioverted from AFib to NSR with 120 J external electrical sync x 1 No complications
[2018-02-20] MEDS: Metoprolol Succinate XL TAB* 25 MG PO SCH (08:06)
[2018-02-20] MEDS: CMC:Pravastatin (NF) 20 MG TAB PO SCH (08:06)
[2018-02-20] MEDS: Cyanocobalamin TAB* 500 MCG PO SCH (08:06)
[2018-02-20] MEDS: Multivitamins/Minerals TAB PO SCH (08:06)
[2018-02-20] MEDS: Rivaroxaban TAB(*) 20 MG TAB PO SCH (08:06)
[2018-02-20] MEDS: Amiodarone TAB* 400 MG PO SCH ×3 (08:06→22:12)
[2018-02-20] MEDS ORDERED: Furosemide TAB* 20 MG PO SCH (09:00)
[2018-02-20] MEDS ORDERED: Amiodarone TAB* 200 MG PO SCH (09:00)
[2018-02-20] MEDS ORDERED: Spironolactone TAB* 25 MG PO SCH (09:00)
--- NOTE | 2018-02-20 10:36 | PN ---
Subjective Date of Service: 02/20/18 Interval History: f/u atrial fibrillation, syncope s/p cardioversion yesterday no cp, dypsnea, lightheadedness SB/SR with PAc's on monitor Medications Active Medications: Acetaminophen (Tylenol Tab*) 650 mg PO Q6H PRN PRN Reason: PAIN Amiodarone HCl (Cordarone Tab*) 400 mg PO TID [facility] Last Admin: 02/20/18 08:06 Dose: 400 mg Cyanocobalamin (Vitamin B12 Tab*) 500 mcg PO DAILY [facility] Last Admin: 02/20/18 08:06 Dose: 500 mcg Lisinopril (Prinivil Tab*) 5 mg PO DAILY [facility] Metoprolol Succinate (Toprol Xl Tab*) 25 mg PO DAILY [facility] Last Admin: 02/20/18 08:06 Dose: 25 mg Multivitamins/Minerals (Theragran/Minerals Tab*) 1 tab PO DAILY [facility] Last Admin: 02/20/18 08:06 Dose: 1 tab Ondansetron HCl (Zofran Odt Tab*) 4 mg SL Q6H PRN PRN Reason: NAUSEA/VOMITING Pravastatin Sodium (Pravachol (Nf)) 40 mg PO DAILY [facility]; Protocol Last Admin: 02/20/18 08:06 Dose: 40 mg Rivaroxaban (Xarelto(*)) 20 mg PO DAILY [facility] Last Admin: 02/20/18 08:06 Dose: 20 mg Objective Vital Signs: Temp Pulse Resp BP Pulse Ox 97.2 F 72 16 160/86 100 02/20/18 07:33 02/20/18 07:33 02/20/18 08:00 02/20/18 07:33 02/20/18 07:33 Oxygen Devices in Use Now: None Appearance: nad, pleasant Ears/Nose/Mouth/Throat: Clear Oropharnyx Neck: Trachea Midline Respiratory: Clear to Auscultation, - - mild increased work of breathing Cardiovascular: No Edema, - - RRR, sternotomy scar intact no significant murmur Abdominal: NL Sounds; No Tenderness; No Distention, - - obese Extremities: No Edema, No Clubbing, Cyanosis Skin: No Rash or Ulcers Neurological: Alert and Oriented x 3 Laboratory Results: 02/19/18 05:56 02/19/18 05:52 INR (Anticoag Therapy) 1.68 (0.77-1.02) H 02/18/18 15:20 APTT 39.8 seconds (26.0-36.3) H 02/18/18 15:20 Total Bilirubin 0.40 mg/dL (0.2-1.0) 02/18/18 15:20 AST 23 U/L (13-39) 02/18/18 15:20 ALT 19 U/L (7-52) 02/18/18 15:20 Alkaline Phosphatase 52 U/L (34-104) 02/18/18 15:20 CK-MB (CK-2) 2.6 ng/mL (0.6-6.3) 02/18/18 15:20 B-Natriuretic Peptide 401 pg/mL (<=100) H 02/18/18 15:20 Total Protein 7.3 g/dL (6.4-8.9) 02/18/18 15:20 Albumin 4.4 g/dL (3.2-5.2) 02/18/18 15:20 Globulin 2.9 g/dL (2-4) 02/18/18 15:20 Albumin/Globulin Ratio 1.5 (1-3) 02/18/18 15:20 TSH 0.91 mcIU/mL (0.34-5.60) 02/18/18 15:20 02/18/18 02/18/18 02/18/18 15:20 18:12 22:59 Troponin I 0.07 H* 0.07 H* 0.07 H* Diagnostic Imaging: Holter Monitor - (04/19/2017) Min HR 42 bpm, avg 60 bpm, max 94 bpm, no significant pauses or arrhythmias. Test performed on 25 mg of toprol daily and 100 mg of amiodarone every other day. Echocardiogram - (08/24/2016) Normal LV size, mild-moderate LVH, LVEF 50%, LA mild-moderately dilated, mild MR T E E - (07/07/2007) Post op MATT shows nromal functioning bioprosthetic aortic valve no evidence of stenosis (max velocity 1.5-1.8 m/s), trivial intravalvular AR, mild-mod MAC with mild-mod MR (decreased post-op), moderate LVH, post- operative LVEF appeared mildly depressed EKG - (07/24/2016) Afib rate 115 bpm, LBBB Cardiac catheterization - (07/01/2007) Dr. Gay [facility] via right groin: Separate ostia for LAD and Lcx, LVEF 35-40%, critical , mild non-obstructive CAD, severe pHTN 81/31 in setting of PCWP 29 mmHg Transesophogeal Echo - (07/30/2016) Patient in rapid atrial fibrillation at time of study. LVEF 20-25%. moderate LA dilation, At least moderate functional MR. No LA/MARISSA thrombus, Normal bioprosthetic aortic valve function. Mild RV dilation with moderately reduced function, moderate atherosclerotic plaque in the Arch and Desc.AO EKG - (03/30/2017) 2:1 aflutter vs. atrial tachycardia ventricular rate 110 bpm Admisison studies Chest x-ray shows cardiopulmonary and stigmata of COPD. CT brain shows no acute injury. Maxillofacial CT shows no acute injury. Assessment/Plan In summary Damon Branham is a 78-year-old man with a history of bioprosthetic aortic valve replacement 2007 for severe , history non-obstructive CAD 2007, DM, HTN, left bundle branch block, atrial fibrillation mediated systolic HF LVEF 20% now improved to 50% s/p cardioversion 07/31/2016. Has had recurrent cardioversions for rate elevated asymptomatic atrial flutter/fibrillation, 2017, 05/2017 and 08/2017. Asymptomatic sinus bradycardia has prevented higher amiodarone dosing in the past (current dose 100 mg po daily). He is now admitted with syncope and mild GLADIS with K 5.4 with a very short prodrome in the setting of several days of atrial fibrillation. s/p cardioversion 02/19/2018 and doing well. - Continue toprol 25 mg po daily - Discontinue aldactone/lasix at discharge - Restart home AceI (ordered) - Continue amiodarone load with 400 mg po TID while inpatient and decrease to 200 mg po daily tomorrow at discharge. Plan for outpatient ablation with Dr. Smith - Given history of conduction system disease and cardiac history, I am concerned about a danyell or ventricular arrhythmia as a cause of his syncope. Will arrange for an implantable linq monitor tomorrow (Wednesday) - Ok to discharge from a cardiac standpoint after tomorrows linq monitor if otherwise remains stable. Thank you for allowing me to participate in the cardiovascular care of this patient. Please do not hesitate to contact me with questions or concerns.
--- NOTE | 2018-02-20 15:31 | PN ---
Subjective Date of Service: 02/20/18 Interval History: Patient seen and examined. Family at bedside. Patient states he is feeling well , denies palpitations, no dizziness, no SOB. Has been OOB and ambulatory unassisted. Discussed POC, medications and LINQ. Objective Active Medications: Acetaminophen (Tylenol Tab*) 650 mg PO Q6H PRN PRN Reason: PAIN Amiodarone HCl (Cordarone Tab*) 400 mg PO TID [facility] Last Admin: 02/20/18 14:01 Dose: 400 mg Cyanocobalamin (Vitamin B12 Tab*) 500 mcg PO DAILY [facility] Last Admin: 02/20/18 08:06 Dose: 500 mcg Lisinopril (Prinivil Tab*) 5 mg PO DAILY [facility] Metoprolol Succinate (Toprol Xl Tab*) 25 mg PO DAILY [facility] Last Admin: 02/20/18 08:06 Dose: 25 mg Multivitamins/Minerals (Theragran/Minerals Tab*) 1 tab PO DAILY [facility] Last Admin: 02/20/18 08:06 Dose: 1 tab Ondansetron HCl (Zofran Odt Tab*) 4 mg SL Q6H PRN PRN Reason: NAUSEA/VOMITING Pravastatin Sodium (Pravachol (Nf)) 40 mg PO DAILY [facility]; Protocol Last Admin: 02/20/18 08:06 Dose: 40 mg Rivaroxaban (Xarelto(*)) 20 mg PO DAILY [facility] Last Admin: 02/20/18 08:06 Dose: 20 mg Vital Signs - 8 hr 02/20/18 02/20/18 02/20/18 07:33 08:00 11:20 Temperature 97.2 F 98.0 F Pulse Rate 72 30 Respiratory 16 16 16 Rate Blood Pressure 160/86 131/81 (mmHg) O2 Sat by Pulse 100 100 Oximetry 02/20/18 02/20/18 11:29 15:23 Temperature 98.2 F Pulse Rate 55 57 Respiratory 16 Rate Blood Pressure 145/81 (mmHg) O2 Sat by Pulse 99 Oximetry Oxygen Devices in Use Now: None Appearance: alert, well appearing, NAD Eyes: No Scleral Icterus, PERRLA Ears/Nose/Mouth/Throat: NL Teeth, Lips, Gums, Mucous Membranes Moist Neck: NL Appearance and Movements; NL JVP, Trachea Midline Respiratory: Symmetrical Chest Expansion and Respiratory Effort, Clear to Auscultation Cardiovascular: NL Sounds; No Murmurs; No JVD, RRR, No Edema Abdominal: NL Sounds; No Tenderness; No Distention Extremities: No Edema, No Clubbing, Cyanosis Skin: No Rash or Ulcers Neurological: Alert and Oriented x 3, NL Gait Nutrition: Taking PO's Result Diagrams: 02/19/18 05:56 02/19/18 05:52 Assess/Plan/Problems-Billing Assessment: This is a 78 year old male with history of recurrent afib that presented to the ED with complaint of syncope of unclear etiology, found to be in afib with RVR, s/p cardioversion 02/19/18. - Patient Problems (1) Syncope and collapse Code(s): R55 - SYNCOPE AND COLLAPSE SNOMED Code(s): 733885815 Comment: - s/p cardioversion with Dr. May 02/19, currently in sinus/sinus danyell with PACs and sometime irregular - Scheduled for Linq recorder tomorrow AM then discharge (2) Atrial fibrillation Code(s): I48.91 - UNSPECIFIED ATRIAL FIBRILLATION SNOMED Code(s): 99950028 Comment: - Continue Amio 400mg TID, then discharge on 200mg daily - Metoprolol 25mg daily, will DC aldactone and lasix at discharge, continue CHAYO - Creat trending down, will continue xarelto at current dose - Goal lytes at K>4 and Mg> 2 (3) GLADIS (acute kidney injury) Code(s): N17.9 - ACUTE KIDNEY FAILURE, UNSPECIFIED SNOMED Code(s): 36619100 Comment: - Appears to be pre-renal 2/2 meds and dehydration and low cardiac output - Will restart CHAYO and xarelto, OK for metformin, hold lasix and aldactone - Avoid nephrotoxic medications, f/u renal function outpatient (4) Congestive heart failure (CHF) Code(s): I50.9 - HEART FAILURE, UNSPECIFIED SNOMED Code(s): 47305088 Comment: - Chronic systolic without acute exacerbation - Will DC diuretics at discharge, patient is euvolemic (5) Diabetes Code(s): E11.9 - TYPE 2 DIABETES MELLITUS WITHOUT COMPLICATIONS SNOMED Code(s) : 86963844 Comment: - On metformin at home, will restart tomorrow - BG stable (6) HLD (hyperlipidemia) Code(s): E78.5 - HYPERLIPIDEMIA, UNSPECIFIED SNOMED Code(s): 93407941 Comment: - Continue atorvastatin (7) HTN (hypertension) Code(s): I10 - ESSENTIAL (PRIMARY) HYPERTENSION SNOMED Code(s): 16632845 Comment: - Continue metoprolol, restart lisinopril tomorrow (8) DVT prophylaxis Code(s): RYS7040 - SNOMED Code(s): 598011721 Comment: - on Xarelto (9) Full code status Code(s): Z78.9 - OTHER SPECIFIED HEALTH STATUS SNOMED Code(s): 009650645 Status and Disposition: Inpatient, DC home tomorrow after LINQ
[2018-02-21] MEDS: CMC:Pravastatin (NF) 20 MG TAB PO SCH (08:57)
[2018-02-21] MEDS: Rivaroxaban TAB(*) 20 MG TAB PO SCH (08:58)
[2018-02-21] MEDS: Amiodarone TAB* 400 MG PO SCH ×2 (08:58→14:04)
[2018-02-21] MEDS: Multivitamins/Minerals TAB PO SCH (08:58)
[2018-02-21] MEDS: Cyanocobalamin TAB* 500 MCG PO SCH (08:58)
[2018-02-21] MEDS: Metoprolol Succinate XL TAB* 25 MG PO SCH (08:58)
[2018-02-21] MEDS ORDERED: Lisinopril TAB* 5 MG PO SCH (09:00)
--- NOTE | 2018-02-21 09:33 | PN ---
Subjective Date of Service: 02/21/18 Interval History: f/u atrial fibrillation, syncope no cp, dypsnea, lightheadedness SB/SR Medications Active Medications: Acetaminophen (Tylenol Tab*) 650 mg PO Q6H PRN PRN Reason: PAIN Amiodarone HCl (Cordarone Tab*) 400 mg PO TID [facility] Last Admin: 02/21/18 08:58 Dose: 400 mg Cyanocobalamin (Vitamin B12 Tab*) 500 mcg PO DAILY [facility] Last Admin: 02/21/18 08:58 Dose: 500 mcg Lisinopril (Prinivil Tab*) 5 mg PO DAILY [facility] Last Admin: 02/21/18 08:58 Dose: 5 mg Metoprolol Succinate (Toprol Xl Tab*) 25 mg PO DAILY [facility] Last Admin: 02/21/18 08:58 Dose: 25 mg Multivitamins/Minerals (Theragran/Minerals Tab*) 1 tab PO DAILY [facility] Last Admin: 02/21/18 08:58 Dose: 1 tab Ondansetron HCl (Zofran Odt Tab*) 4 mg SL Q6H PRN PRN Reason: NAUSEA/VOMITING Pravastatin Sodium (Pravachol (Nf)) 40 mg PO DAILY [facility]; Protocol Last Admin: 02/21/18 08:57 Dose: 40 mg Rivaroxaban (Xarelto(*)) 20 mg PO DAILY [facility] Last Admin: 02/21/18 08:58 Dose: 20 mg Objective Vital Signs: Temp Pulse Resp BP Pulse Ox 97.8 F 61 20 135/63 99 02/21/18 07:31 02/21/18 07:31 02/21/18 07:50 02/21/18 07:31 02/21/18 07:31 Oxygen Devices in Use Now: None Appearance: nad, pleasant Ears/Nose/Mouth/Throat: Clear Oropharnyx Neck: Trachea Midline Respiratory: Clear to Auscultation, - - mild increased work of breathing Cardiovascular: No Edema, - - RRR, sternotomy scar intact no significant murmur Abdominal: NL Sounds; No Tenderness; No Distention, - - obese Extremities: No Edema, No Clubbing, Cyanosis Skin: No Rash or Ulcers Neurological: Alert and Oriented x 3 Laboratory Results: 02/19/18 05:56 02/19/18 05:52 INR (Anticoag Therapy) 1.68 (0.77-1.02) H 02/18/18 15:20 APTT 39.8 seconds (26.0-36.3) H 02/18/18 15:20 Total Bilirubin 0.40 mg/dL (0.2-1.0) 02/18/18 15:20 AST 23 U/L (13-39) 02/18/18 15:20 ALT 19 U/L (7-52) 02/18/18 15:20 Alkaline Phosphatase 52 U/L (34-104) 02/18/18 15:20 CK-MB (CK-2) 2.6 ng/mL (0.6-6.3) 02/18/18 15:20 B-Natriuretic Peptide 401 pg/mL (<=100) H 02/18/18 15:20 Total Protein 7.3 g/dL (6.4-8.9) 02/18/18 15:20 Albumin 4.4 g/dL (3.2-5.2) 02/18/18 15:20 Globulin 2.9 g/dL (2-4) 02/18/18 15:20 Albumin/Globulin Ratio 1.5 (1-3) 02/18/18 15:20 TSH 0.91 mcIU/mL (0.34-5.60) 02/18/18 15:20 02/18/18 02/18/18 02/18/18 15:20 18:12 22:59 Troponin I 0.07 H* 0.07 H* 0.07 H* Diagnostic Imaging: Holter Monitor - (04/19/2017) Min HR 42 bpm, avg 60 bpm, max 94 bpm, no significant pauses or arrhythmias. Test performed on 25 mg of toprol daily and 100 mg of amiodarone every other day. Echocardiogram - (08/24/2016) Normal LV size, mild-moderate LVH, LVEF 50%, LA mild-moderately dilated, mild MR T E E - (07/07/2007) Post op MATT shows nromal functioning bioprosthetic aortic valve no evidence of stenosis (max velocity 1.5-1.8 m/s), trivial intravalvular AR, mild-mod MAC with mild-mod MR (decreased post-op), moderate LVH, post- operative LVEF appeared mildly depressed EKG - (07/24/2016) Afib rate 115 bpm, LBBB Cardiac catheterization - (07/01/2007) Dr. Gay [facility] [place] via right groin: Separate ostia for LAD and Lcx, LVEF 35-40%, critical , mild non-obstructive CAD, severe pHTN 81/31 in setting of PCWP 29 mmHg Transesophogeal Echo - (07/30/2016) Patient in rapid atrial fibrillation at time of study. LVEF 20-25%. moderate LA dilation, At least moderate functional MR. No LA/MARISSA thrombus, Normal bioprosthetic aortic valve function. Mild RV dilation with moderately reduced function, moderate atherosclerotic plaque in the Arch and Desc.AO EKG - (03/30/2017) 2:1 aflutter vs. atrial tachycardia ventricular rate 110 bpm Admisison studies Chest x-ray shows cardiopulmonary and stigmata of COPD. CT brain shows no acute injury. Maxillofacial CT shows no acute injury. Assessment/Plan In summary Damon Branham is a 78-year-old man with a history of bioprosthetic aortic valve replacement 2007 for severe , history non-obstructive CAD 2007, DM, HTN, left bundle branch block, atrial fibrillation mediated systolic HF LVEF 20% now improved to 50% s/p cardioversion 07/31/2016. Has had recurrent cardioversions for rate elevated asymptomatic atrial flutter/fibrillation, 2017, 05/2017 and 08/2017. Asymptomatic sinus bradycardia has prevented higher amiodarone dosing in the past (current dose 100 mg po daily). He is now admitted with syncope and mild GLADIS with K 5.4 with a very short prodrome in the setting of several days of atrial fibrillation. s/p cardioversion 02/19/2018 and doing well. - Continue toprol 25 mg po daily - Discontinue aldactone/lasix at discharge - Continue lisinopril - Continue amiodarone load with 400 mg po TID while inpatient and decrease to 200 mg po daily today at discharge. Plan for outpatient ablation with Dr. Smith - Given history of conduction system disease and cardiac history, I am concerned about a danyell or ventricular arrhythmia as a cause of his syncope. Will arrange for an implantable linq monitor today (Wednesday) - Ok to discharge from a cardiac standpoint after todays linq monitor if otherwise remains stable. Thank you for allowing me to participate in the cardiovascular care of this patient. Please do not hesitate to contact me with questions or concerns.
[2018-02-21] MEDS ORDERED: Lidocaine 1% INJ* 10 MG/ML 30 ML SDV ONE (15:09)
[2018-02-21 17:19] VITALS: BP 131/76
--- NOTE | 2018-02-22 08:47 | CARD ---
CC: Cheikh May DO * EVENT MONITOR IMPLANTATION: DATE OF SERVICE: 02/21/18 PROCEDURE: Implantation of event monitor. INDICATION: Syncope. The patient is a 78-year-old gentleman with a syncopal episode thought could be due to arrhythmic causes. Event monitor was recommended for long-term cardiac monitoring. PROCEDURE IN DETAIL: The patient was brought to the procedure room, his anterior chest was prepped and draped in the usual fashion. 1% lidocaine was used for local anesthesia. The event monitor was injected subcutaneously. The patient tolerated the procedure well with no complications. The event monitor is a [employer]omedixQ serial #[id number] and had an R-wave sensitivity of 0.21 mV. The patient will be seen in followup as an outpatient. [id number]/[facility] #: [id number] MTDD
--- NOTE | 2018-02-22 14:14 | DS ---
CC: Dr. Cheikh May of Cardiology * DISCHARGE SUMMARY: DATE OF ADMISSION: 02/18/18 DATE OF DISCHARGE: 02/21/18 ATTENDING FOR THIS ADMISSION AND FOR TODAY: Dr. Ute Hunt.* (DICTATED BY SUE RAZA NP) HOSPITAL COURSE: Please refer to admission H and P, but in short, Mr. Branham is a 78-year-old male patient who presented to the ED with complaint of syncope and collapse. The patient does have history of paroxysmal atrial fibrillation. He said that Wednesday before his admission, he had noticed his heart rate was irregular. He is anticoagulated on amiodarone and other medications for rate control. He was also discussing with Dr. Smith regarding cardiac ablation for his continued AFib, however after having his syncopal episode he was brought to the emergency department for evaluation. He was found to be in AFib with rapid ventricular response. The patient was seen by Dr. aMy, who increased the patient's amiodarone. He received loading dose of 400 mg 3 times a day and then underwent cardioversion. At that time, Dr. May determined the patient would benefit from a loop recorder as his syncopal episode did not exactly correlate with his AFib, but may have been a ventricular arrhythmia that was not documented on telemetry during this admission. The patient underwent LINQ insertion this afternoon. He had an uneventful procedure with no postprocedure complications. He was cleared for discharge by Cardiology after his procedure today. DISCHARGE DIAGNOSES: 1. Paroxysmal atrial fibrillation with rapid ventricular response. 2. Syncope and collapse. 3. History of hypertension. 4. Volume overload. 5. History of hyperlipidemia. 6. History of coronary artery disease. 7. History of gastroesophageal reflux disease. 8. History of obesity. 9. Porcine aortic valve replacement in 2007. 10. History of cardiomyopathy and heart failure. 11. Acute renal insufficiency. DISCHARGE MEDICATIONS: Include: 1. Magnesium 400 mg p.o. daily. 2. Metformin 500 mg every other day. 3. Pravastatin 40 mg daily. 4. Vitamin B12 of 2500 mcg daily. 5. Lisinopril 5 mg daily. 6. Metoprolol succinate 25 mg p.o. daily. 7. Probiotic 1 tablet daily. 8. Xarelto 20 mg daily. 9. Multivitamin with minerals 1 tab p.o. daily. Medication changes: 1. Amiodarone now 200 mg p.o. daily. 2. The patient was instructed to stop his spironolactone and his Lasix at discharge. REVIEW OF SYSTEMS: Today, the patient is not complaining of any fever, fatigue , or chills. No shortness of breath, no chest pain, no cough. No abdominal pain, no nausea, no vomiting. No arthralgias, no myalgias and no further constitutional complaints. PHYSICAL EXAM: Today, reveals a well-appearing 78-year-old male, in no acute distress. Vital signs are blood pressure 131/76, heart rate 54, O2 saturation 100% on room air, respiratory rate 19, temperature 97.6. HEENT: The patient is atraumatic and normocephalic. PERRLA with nonicteric sclerae. Oral mucosa is moist. Tongue is midline. Neck is supple and nontender. No JVD noted. No carotid bruit auscultated and no thyromegaly appreciated. Cardiovascular: S1, S2 present. No murmurs, gallops, or rubs noted. Rate is regular. Rhythm is bradycardic. Infrequent PACs noted on telemetry. Lungs are clear bilaterally to auscultation with no wheezing, rhonchi, or rales. Abdomen is soft, nontender , and nondistended. Positive bowel sounds in all 4 quadrants. Moderately obese. was deferred. Musculoskeletal: There is no clubbing, no edema, and no edema. He has +2 distal pulses palpable. Steady gait. Neurologic: Grossly intact with no focal deficits. Psychiatric: He is cooperative and appropriate. LABORATORY DATA: WBCs 9.8, RBCs 4.71, hemoglobin 15.1, hematocrit 46, platelets 188. Sodium 141, potassium 4.5, chloride 107, CO2 of 25, BUN 31, creatinine 1.42 down from 1.95, GFR is 48.2, glucose 124, lactic acid 1.6, calcium 9.2. Troponins were mildly elevated at 0.07 times 3 with a BNP of 401. INR was 1.68 and D-dimer was less than 200. IMAGING: Chest x-ray dated 02/18/18 showed cardiomegaly and findings consistent with COPD. No other acute pathology noted. CT of the brain dated shows no acute intracranial pathology. Maxillofacial CT to evaluate for abrasion after his fall showed some soft tissue swelling of the left frontal scalp with no acute fracture. DISPOSITION: The patient was discharged to home after he was cleared by Cardiology today. ACTIVITY: As tolerated. DIET: Low-sodium, heart-healthy. FOLLOWUP: The patient was instructed to follow up with Dr. Cheikh May. Dr. May's office will call him to coordinate the followup visit. The patient was discharged in stable condition. All questions were answered. The patient stated his understanding of his discharge instructions, followups, and medications. TIME SPENT: Greater than 35 minutes coordinating with the patient and other providers involved to this patient's care. SUE RAZA NP [id number]/[facility] #: [id number] DOROTHY
== END 2018-02-21 17:06 | disposition home or self-care (01) | DRG 261 ==
LOC: ED 14:36 → MEDTELE 17:55 → OBSVTOIN 02-19 18:00
PROVIDERS: ADMIT Internal Medicine; ATTEND Internal Medicine
PROC: 5A2204Z Restoration of Cardiac Rhythm, Single (ICD-10-PCS; principal; 2018-02-19)
PROC: 0JH632Z Insertion of Monitoring Device into Chest Subcutaneous Tissue and Fascia, Percutaneous Approach (ICD-10-PCS; 2018-02-21)
DX: I48.0 Paroxysmal atrial fibrillation (principal); I50.22 Chronic systolic (congestive) heart failure; N17.9 Acute kidney failure, unspecified; E87.70 Fluid overload, unspecified; I42.9 Cardiomyopathy, unspecified; I11.0 Hypertensive heart disease with heart failure; I44.7 Left bundle-branch block, unspecified; E11.9 Type 2 diabetes mellitus without complications; Z95.3 Presence of xenogenic heart valve; R55 Syncope and collapse; E78.5 Hyperlipidemia, unspecified; I25.10 Atherosclerotic heart disease of native coronary artery without angina pectoris; R74.8 Abnormal levels of other serum enzymes; K21.9 Gastro-esophageal reflux disease without esophagitis; E66.9 Obesity, unspecified; Z68.34 Body mass index [BMI] 34.0-34.9, adult; Z79.899 Other long term (current) drug therapy; Z79.01 Long term (current) use of anticoagulants; Z88.0 Allergy status to penicillin; Z88.8 Allergy status to other drugs, medicaments and biological substances; Z82.3 Family history of stroke; Z80.0 Family history of malignant neoplasm of digestive organs
CPT/HCPCS: 33282; 36415; 70450; 70486; 71046; 80048; 80053; 82550; 82553; 83605; 83735; 83880; 84443; 84484; 85025; 85379; 85610; 85730; 93005; 96374; 99283; A9270-GY; C1764; G0378; J2250; J2310; J3010; J3490

== ENCOUNTER 2023-03-23 21:22 | Observation (INO) ==
[2023-03-24 00:50] LABS: ABS Basophils 0.1 10^3/uL (0.0-0.1); ABS Eosinophils 0.2 10^3/uL (0.0-0.5); ABS Lymphocytes 1.3 10^3/uL (1.0-4.8); ABS Monocytes 0.8 10^3/uL (0.0-1.1); ABS Neutrophils 5.4 10^3/uL (1.5-7.6); Hematocrit 37.7 % (38-53); Hemoglobin 12.9 g/dL (13.2-16.3); Lymphocyte % 16.3 %; Mean Corpuscular Hemoglobin 32.4 pg (27-33); Mean Corpuscular Hgb Conc 34.3 g/dL (31-36); Mean Corpuscular Volume 94.6 fL (80-97); Mean Platelet Volume 7.6 fL (7.5-11.2); Nucleated Red Blood Cells % 0.1 %/100WBC (0.0-0.8); Platelet Count 141 10^3/uL (150-450); Red Blood Count 3.99 10^6/uL (4.06-5.63); Red Cell Distribution Width 14.5 % (12-17); White Blood Count 7.7 10^3/uL (3.6-10.2)
[2023-03-24 01:05] LABS: Calcium 9.3 mg/dL (8.6-10.3); Creatinine, Serum 1.23 mg/dL (0.67-1.17); Potassium 4.4 mmol/L (3.5-5.0); eGFR CKD-EPI 58.3 (>60)
[2023-03-24 01:07] LABS: INR 1.43 (0.83-1.13)
[2023-03-24] MEDS ORDERED: Dextrose 50% Syringe 50 ml 25 GM/50 ML SYRINGE IV PUSH PRN (06:34)
[2023-03-24 07:17] LABS: ABS Basophils 0.1 10^3/uL (0.0-0.1); ABS Eosinophils 0.3 10^3/uL (0.0-0.5); ABS Lymphocytes 1.4 10^3/uL (1.0-4.8); ABS Monocytes 0.8 10^3/uL (0.0-1.1); ABS Neutrophils 5.9 10^3/uL (1.5-7.6); ABS Nucleated RBC 0.01 10^3/ul; Eosinophil % 3.9 %; Hematocrit 38.5 % (38-53); Hemoglobin 13.2 g/dL (13.2-16.3); Lymphocyte % 16.7 %; Mean Corpuscular Hemoglobin 32.4 pg (27-33); Mean Corpuscular Hgb Conc 34.2 g/dL (31-36); Mean Corpuscular Volume 94.7 fL (80-97); Mean Platelet Volume 7.9 fL (7.5-11.2); Nucleated Red Blood Cells % 0.1 %/100WBC (0.0-0.8); Platelet Count 142 10^3/uL (150-450); Red Blood Count 4.06 10^6/uL (4.06-5.63); Red Cell Distribution Width 14.6 % (12-17); White Blood Count 8.6 10^3/uL (3.6-10.2)
[2023-03-24 07:35] LABS: Anion Gap 8 mmol/L (2-16); Blood Urea Nitrogen 25 mg/dL (6-24); CO2 Carbon Dioxide 26 mmol/L (22-32); Calcium 9.3 mg/dL (8.6-10.3); Chloride 105 mmol/L (101-111); Creatinine, Serum 1.15 mg/dL (0.67-1.17); Glucose 102 mg/dL (70-100); Sodium 139 mmol/L (135-145); eGFR CKD-EPI 63.1 (>60)
[2023-03-24] MEDS ORDERED: Clindamycin 900 MG/D5W BAG 900 MG/50 ML BAG IVPB ONE (09:24)
[2023-03-24] MEDS ORDERED: Heparin 5000 UNITS/ML 1 mL VIAL IV SCH (11:00)
[2023-03-24 12:47] LABS: Creatinine, Serum 1.07 mg/dL (0.67-1.17); eGFR CKD-EPI 68.9 (>60)
[2023-03-24] MEDS: Heparin DRIP 25,000 UNITS BAG 25,000 UNITS/250 ML BAG IV SCH (12:57)
[2023-03-24] MEDS: CMCS:Pravastatin 20 mg TAB (NF) PO SCH (22:13)
[2023-03-25 03:04] LABS: ABS Basophils 0.1 10^3/uL (0.0-0.1); ABS Eosinophils 0.4 10^3/uL (0.0-0.5); ABS Lymphocytes 1.6 10^3/uL (1.0-4.8); ABS Neutrophils 5.9 10^3/uL (1.5-7.6); ABS Nucleated RBC 0.01 10^3/ul; Eosinophil % 4.6 %; Hematocrit 39.3 % (38-53); Hemoglobin 13.6 g/dL (13.2-16.3); Lymphocyte % 17.6 %; Mean Corpuscular Hemoglobin 32.6 pg (27-33); Mean Corpuscular Hgb Conc 34.5 g/dL (31-36); Mean Corpuscular Volume 94.5 fL (80-97); Mean Platelet Volume 7.7 fL (7.5-11.2); Nucleated Red Blood Cells % 0.1 %/100WBC (0.0-0.8); Platelet Count 148 10^3/uL (150-450); Red Blood Count 4.16 10^6/uL (4.06-5.63); Red Cell Distribution Width 14.6 % (12-17)
[2023-03-25] MEDS: NS 0.9% 1000 ml BAG 1,000 ML IV SCH (08:16)
[2023-03-25 10:13] LABS: Calcium 9.2 mg/dL (8.6-10.3); Creatinine, Serum 0.99 mg/dL (0.67-1.17); Potassium 4.2 mmol/L (3.5-5.0); eGFR CKD-EPI 75.6 (>60)
[2023-03-25] MEDS: fentaNYL 100 mcg/2 ml 50 MCG/ML VIAL IV SLOW PU ONE ×2 (12:33→15:10)
[2023-03-25] MEDS: Midazolam 10 mg/10 ml VIAL 1 mg/ml 10 ml VIAL (10 mg) IV SLOW PU ONE ×2 (12:34→15:10)
[2023-03-25] MEDS ORDERED: Lidocaine 1% VIAL 10 MG/ML 30 ML VIAL ONE (14:13)
[2023-03-25] MEDS ORDERED: Midazolam 5 mg/5 ml VIAL 1 mg/ml 5 ml VIAL (5 mg) ONE (14:38)
[2023-03-25] MEDS ORDERED: fentaNYL 100 mcg/2 ml 50 MCG/ML VIAL ONE (14:38)
[2023-03-25] MEDS: Clindamycin 900 MG/D5W BAG 900 MG/50 ML BAG IVPB ONE (15:11)
[2023-03-25 18:50] VITALS: BP 148/82
== END 2023-03-25 18:39 | disposition home or self-care (01) | DRG 243 ==
LOC: ED 21:22 → EDHOLD 21:22 → MEDTELE 03-24 12:02
PROVIDERS: ADMIT Internal Medicine; ATTEND Internal Medicine